=== PATIENT | female | born 1980 | race African-American/Black ===

== ENCOUNTER 2016-11-15 09:54 | Inpatient (IN) | payer MEDICAID ==
[~2016-11-15] VITALS: Ht 177.8 cm; Wt 62.6 kg
[~2016-11-15 09:54] MED LIST: CEPHALEXIN500 M1 ORAL; CIPROFLOXACIN750 MG ORAL; HYDROCODON-ACE1 EA15 ORAL; KEPPRA500 M4 ORAL; LEVETIRACETAM500 MG ORAL; NKM; SILVADENE20 GM TP; UNOBMED
[2016-11-15] MEDS ORDERED: LORazepam Inj 2mg/ml 1ml ONE (10:09)
[2016-11-15 10:10] VITALS: BP 112/63
[2016-11-15] MEDS ORDERED: LORazepam Inj 2mg/ml 1ml IV ONE (10:15)
[2016-11-15 11:20] LABS: MEAN CORPUSCULAR HEMOGLOBIN 32.3 PG (27.0-31.0); MEAN CORPUSCULAR HGB CONC 32.4 G/DL (32.0-36.0); MEAN CORPUSCULAR VOLUME 100 FL (80-99); PLATELET COUNT 341 K/UL (150-450); RED BLOOD COUNT 4.26 M/UL (4.20-5.40); RED CELL DISTRIBUTION WIDTH 13.8 % (11.6-14.8); WHITE BLOOD COUNT 20.1 K/UL (4.8-10.8)
[2016-11-15 11:25] LABS: ACETAMINOPHEN < 10 ug/mL (10-30); ALANINE AMINOTRANSFERASE 13 U/L (3-33); ALBUMIN/GLOBULIN RATIO 1.2 (1.0-2.7); ALCOHOL < 10 mg/dL; ANION GAP 25 (5-15); ASPARTATE AMINO TRANSFERASE 26 U/L (5-40); CALCIUM 9.6 mg/dL (8.6-10.2); CARBON DIOXIDE 16 mEQ/L (20-30); CHLORIDE 99 mEQ/L (98-107); CREATININE 0.8 mg/dL (0.5-0.9); GLOMERULAR FILTRATION RATE > 60 mL/min (>60); HEMOLYSIS 3; POTASSIUM 3.3 mEQ/L (3.4-4.9); SODIUM 140 mEQ/L (135-145); TROPONIN I < 0.30 ng/mL (<=0.30)
[2016-11-15 11:37] LABS: BAND NEUTROPHILS % (MANUAL) 1 % (0-8); BASOPHILS % (MANUAL) 0 % (0-2); EOSINOPHILS % (MANUAL) 0 % (0-3); LYMPHOCYTES % (MANUAL) 7 % (20-45); NEUTROPHILS % (MANUAL) 84 % (45-75); PLATELET ESTIMATE ADEQUATE; PLATELET MORPHOLOGY NORMAL; TOTAL CELLS COUNTED 100
[2016-11-15 12:19] LABS: APPEARANCE,URINE SLIGHTLY CLOUDY; KETONES,URINE 3+ (NEGATIVE); LEUKOCYTE ESTERASE ,URINE 1+ (NEGATIVE); NITRITE,URINE NEGATIVE (NEGATIVE); PH,URINE 5 (4.5-8.0); PROTEIN,URINE 1+ (NEGATIVE); UROBILINOGEN,URINE NORMAL MG/DL (0.0-1.0)
[2016-11-15 12:30] LABS: BACTERIA,URINE FEW /HPF; SQUAMOUS EPITHELIAL CELL,UR FEW /LPF (NONE/OCC); URIC ACID CRYSTALS,URINE MANY /LPF
--- NOTE | 2016-11-15 14:25 | Emergency Room Report ---
History of Present Illness General Chief Complaint: Seizure Source: Friend, EMS Present Illness HPI This patient has a history of seizure disorder. She is brought in by EMS. Her boyfriend called EMS because she had 9 seizures this morning. She does not take the Keppra she is prescribed. She does have a long history of seizure disorder. There are no other complaints. Allergies: Coded Allergies: No Known Allergies (Unverified , 08/05/13) Patient History Past Medical History: see triage record, seizures Social History: Reports: alcohol use, drug use Reviewed Nursing Documentation: PMH: Agreed, PSxH: Agreed Nursing Documentation-PMH Past Medical History: No History, Except For Hx Cancer: No Hx Gastrointestinal Problems: No Hx Neurological Problems: Yes Hx Seizures: Yes Review of Systems All Other Systems: negative except mentioned in HPI Physical Exam Vital Signs Date Time Temp Pulse Resp B/P Pulse Ox O2 Delivery O2 Flow Rate FiO2 11/15/16 09:49 99.0 70 16 130/90 99 Room Air Sp02 EP Interpretation: reviewed, normal General Appearance: no apparent distress, GCS 15, non-toxic, Postictal Head: normocephalic, atraumatic Eyes: bilateral eye PERRL, bilateral eye normal inspection ENT: hearing grossly normal, normal pharynx, no angioedema, normal voice Neck: full range of motion, supple/symm/no masses Respiratory: chest non-tender, lungs clear, normal breath sounds, speaking full sentences Cardiovascular #1: regular rate, rhythm, no edema Gastrointestinal: normal bowel sounds, non tender, soft, non-distended, no guarding, no rebound Rectal: deferred Musculoskeletal: back normal, normal range of motion, non-tender Neurologic: responsive, other - Sleepy but non-focal. Unable to fully cooperate with exam. Psychiatric: memory normal, mood/affect normal, no suicidal/homicidal ideation Skin: normal color, no rash, warm/dry, well hydrated Medical Decision Making Diagnostic Impression: Primary Impression: Uncontrolled seizures ER Course Patient presents with recurrent uncontrolled seizures. She is noncompliant with her medications. She says an elevated white blood cell count. I did repeat the white blood cell count and it is declining and this may be related to drug use and 9 seizures today. I feel that this patient should be admitted for further seizure control and further monitoring. She was admitted for further evaluation and treatment. Labs Test 11/15/16 10:08 11/15/16 11:54 White Blood Count 20.1 K/UL (4.8-10.8) Red Blood Count 4.26 M/UL (4.20-5.40) Hemoglobin 13.7 G/DL (12.0-16.0) Hematocrit 42.4 % (37.0-47.0) Mean Corpuscular Volume 100 FL (80-99) Mean Corpuscular Hemoglobin 32.3 PG (27.0-31.0) Mean Corpuscular Hemoglobin Concent 32.4 G/DL (32.0-36.0) Red Cell Distribution Width 13.8 % (11.6-14.8) Platelet Count 341 K/UL (150-450) Mean Platelet Volume 7.0 FL (6.5-10.1) Neutrophils (%) (Auto) % (45.0-75.0) Lymphocytes (%) (Auto) % (20.0-45.0) Monocytes (%) (Auto) % (1.0-10.0) Eosinophils (%) (Auto) % (0.0-3.0) Basophils (%) (Auto) % (0.0-2.0) Differential Total Cells Counted 100 Neutrophils % (Manual) 84 % (45-75) Lymphocytes % (Manual) 7 % (20-45) Monocytes % (Manual) 8 % (1-10) Eosinophils % (Manual) 0 % (0-3) Basophils % (Manual) 0 % (0-2) Band Neutrophils 1 % (0-8) Platelet Estimate Adequate Platelet Morphology Normal Red Blood Cell Morphology Normal Sodium Level 140 mEQ/L (135-145) Potassium Level 3.3 mEQ/L (3.4-4.9) Chloride Level 99 mEQ/L (98-107) Carbon Dioxide Level 16 mEQ/L (20-30) Anion Gap 25 (5-15) Blood Urea Nitrogen 6 mg/dL (7-23) Creatinine 0.8 mg/dL (0.5-0.9) Estimat Glomerular Filtration Rate > 60 mL/min (>60) Glucose Level 155 mg/dL (74-106) Calcium Level 9.6 mg/dL (8.6-10.2) Total Bilirubin 0.4 mg/dL (0.0-1.2) Aspartate Amino Transf (AST/SGOT) 26 U/L (5-40) Alanine Aminotransferase (ALT/SGPT) 13 U/L (3-33) Alkaline Phosphatase 87 U/L (35-104) Troponin I < 0.30 ng/mL (<=0.30) Total Protein 8.0 g/dL (6.6-8.7) Albumin 4.5 g/dL (3.5-5.2) Globulin 3.5 g/dL Albumin/Globulin Ratio 1.2 (1.0-2.7) Acetaminophen Level < 10 ug/mL (10-30) Serum Alcohol < 10 mg/dL Urine Color Pale yellow Urine Appearance Slightly cloudy Urine pH 5 (4.5-8.0) Urine Specific [place] 1.025 (1.005-1.035) Urine Protein 1+ (NEGATIVE) Urine Glucose (UA) Negative (NEGATIVE) Urine Ketones 3+ (NEGATIVE) Urine Occult Blood 1+ (NEGATIVE) Urine Nitrite Negative (NEGATIVE) Urine Bilirubin Negative (NEGATIVE) Urine Urobilinogen Normal MG/DL (0.0-1.0) Urine Leukocyte Esterase 1+ (NEGATIVE) Urine RBC 2-4 /HPF (0 - 2) Urine WBC 2-4 /HPF (0 - 2) Urine Squamous Epithelial Cells Few /LPF (NONE/OCC) Urine Uric Acid Crystals Many /LPF (NONE) Urine Bacteria Few /HPF (NONE) Urine HCG, Qualitative Negative Urine Opiates Screen Negative (NEGATIVE) Urine Barbiturates Screen Negative (NEGATIVE) Phencyclidine (PCP) Screen Negative (NEGATIVE) Urine Amphetamines Screen Negative (NEGATIVE) Urine Benzodiazepines Screen Negative (NEGATIVE) Urine Cocaine Screen Negative (NEGATIVE) Urine Marijuana (THC) Screen Positive (NEGATIVE) EKG Diagnostic Results Rate: tachycardiac Rhythm: other ST Segments: no acute changes Rhythm Strip Diag. Results EP Interpretation: yes Rate: 100's Rhythm: no PVC's, no ectopy Other Impression S.tachycardia Last Vital Signs Date Time Temp Pulse Resp B/P Pulse Ox O2 Delivery O2 Flow Rate FiO2 11/15/16 10:11 101 26 Room Air 11/15/16 10:10 99.0 112/63 99 Disposition: ADMITTED INPATIENT Condition: Serious Referrals: [facility],REFERRING (PCP) IMTIAZ LOPEZ D.O. Nov 15, 2016 14:25
[2016-11-15 15:06] VITALS: BP 118/64
[2016-11-15 15:07] LABS: MEAN CORPUSCULAR HEMOGLOBIN 34.4 PG (27.0-31.0); MEAN CORPUSCULAR VOLUME 98 FL (80-99); MEAN PLATELET VOLUME 7.1 FL (6.5-10.1); PLATELET COUNT 199 K/UL (150-450); RED BLOOD COUNT 3.62 M/UL (4.20-5.40); RED CELL DISTRIBUTION WIDTH 13.6 % (11.6-14.8); WHITE BLOOD COUNT 17.2 K/UL (4.8-10.8)
[2016-11-15] MEDS ORDERED: UNOBMED (15:22)
[2016-11-15 15:31] LABS: BAND NEUTROPHILS % (MANUAL) 0 % (0-8); BASOPHILS % (MANUAL) 0 % (0-2); EOSINOPHILS % (MANUAL) 0 % (0-3); LYMPHOCYTES % (MANUAL) 8 % (20-45); NEUTROPHILS % (MANUAL) 89 % (45-75); PLATELET ESTIMATE ADEQUATE; PLATELET MORPHOLOGY NORMAL; TOTAL CELLS COUNTED 100
[2016-11-15 19:10] VITALS: BP 102/62
[2016-11-15 21:00] VITALS: BP 122/84
[2016-11-15 21:05] VITALS: BP 102/62
[2016-11-15] MEDS ORDERED: LORazepam Inj 2mg/ml 1ml IV PRN (22:15)
[2016-11-16] VITALS: BP 110/69
[2016-11-16 04:00] VITALS: BP 113/78
[2016-11-16 08:00] VITALS: BP 116/64
[2016-11-16 08:31] LABS: BASOPHILS % (AUTO) 1.7 % (0.0-2.0); EOSINOPHILS % (AUTO) 1.2 % (0.0-3.0); LYMPHOCYTES % (AUTO) 40.7 % (20.0-45.0); MEAN CORPUSCULAR HEMOGLOBIN 32.9 PG (27.0-31.0); MEAN CORPUSCULAR HGB CONC 33.5 G/DL (32.0-36.0); MEAN CORPUSCULAR VOLUME 98 FL (80-99); MEAN PLATELET VOLUME 6.9 FL (6.5-10.1); MONOCYTES % (AUTO) 10.3 % (1.0-10.0); PLATELET COUNT 260 K/UL (150-450); RED BLOOD COUNT 3.81 M/UL (4.20-5.40); RED CELL DISTRIBUTION WIDTH 13.1 % (11.6-14.8); WHITE BLOOD COUNT 9.6 K/UL (4.8-10.8)
[2016-11-16 08:43] LABS: ANION GAP 21 (5-15); CALCIUM 8.8 mg/dL (8.6-10.2); CARBON DIOXIDE 19 mEQ/L (20-30); CHLORIDE 98 mEQ/L (98-107); CREATININE 0.6 mg/dL (0.5-0.9); GLOMERULAR FILTRATION RATE > 60 mL/min (>60); HEMOLYSIS 29; POTASSIUM 3.1 mEQ/L (3.4-4.9); SODIUM 138 mEQ/L (135-145)
[2016-11-16 12:00] VITALS: BP 112/66
[2016-11-16 16:00] VITALS: BP 107/65
[2016-11-16] MEDS: Acetaminophen 500mg (ES) tab ORAL PRN ×2 (17:23→23:54)
[2016-11-16 20:13] VITALS: BP 96/73
[2016-11-17 00:09] VITALS: BP 118/86
[2016-11-17 04:15] VITALS: BP 108/81
[2016-11-17 08:30] VITALS: BP 119/77
--- NOTE | 2016-11-17 08:44 | Neurology Progress Note ---
Objective Physical Exam Last Vital Signs Date Time Temp Pulse Resp B/P Pulse Ox O2 Delivery O2 Flow Rate FiO2 11/17/16 04:15 97.0 80 20 108/81 97 Room Air Impression/Recommendations Problems: (1) Uncontrolled seizures (2) Noncompliance with medication regimen Status: unchanged Recommendations #[id number] ANDREW BARLOW Nov 17, 2016 08:44
[2016-11-17] MEDS: Acetaminophen 500mg (ES) tab ORAL PRN ×2 (09:03→13:07)
--- NOTE | 2016-11-17 10:15 | Consultation ---
DATE OF CONSULTATION: 11/16/2016 NEUROLOGICAL CONSULTATION REQUESTING PHYSICIAN: Ryan Camarena M.D. HISTORY OF PRESENT ILLNESS: This is a 35-year-old female, seen in neurological consultation to evaluate exacerbation of chronic seizure disorder. The patient is a poor historian, but according to medical records, the patient had been hospitalized initially to this facility in 2013 after having a few months of recurrent generalized clonic-tonic seizures. The patient was able to tell me that she had at least 3 seizures this year. She has no recollection what happened to her yesterday prior to admission. According to her boyfriend who was with her at home, she had at least 6 seizures without regaining consciousness, after following which paramedics were called to the scene, she was brought to this facility. Her vital signs were stable. Blood pressure 130/90 and temperature 99.0 degrees. Laboratory studies at included CBC with WBC 20.1, which subsided down to 9.6. Urinalysis, 2+ ketones. Toxicology panel positive for marijuana. Chemistry panel with potassium 3.3. Anion gap of 25. Blood sugar 155. Repeat study revealed normal blood glucose 75 and potassium down to 3.1. The patient is unable to recall exactly what doses of medication she is on except she is on Keppra in her bottle indicate it is 1000 milligram to be taken twice a day. She is also on Dilantin, but the dose is not clear. PAST MEDICAL HISTORY: She denies any major medical problems in the past. MEDICATIONS: The patient indicated that she ran out of medications. MEDICATIONS: The patient indicated that she ran out of medications. ALLERGIES: None reported. SOCIAL HISTORY: The patient lives with her boyfriend. 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 She admits having alcohol abuse in the past, but now she is drinking once a week without being drunk. Smoker, marijuana. REVIEW OF SYSTEMS: Currently feels well. She has no headache and no dizziness. No chest pain or palpitations. No respiratory problems. Denies abdominal pain or discomfort. She describes her seizures sudden loss of consciousness with fall. At times, urinary incontinence, tongue biting with postictal confusion state. PHYSICAL EXAMINATION: GENERAL: A well-developed, well-nourished female, not in acute distress, lying comfortably in bed. VITAL SIGNS: Vital signs now are stable. Blood pressure 128/70 and respirations 14. HEENT: Head, normocephalic. No evidence of injuries. Eyes, ears, and throat are clear. NECK: Supple. No meningeal signs. MUSCULOSKELETAL: Unremarkable. There is no deformities. Peripheral pulses 1+ symmetric. MENTAL STATUS: The patient is alert and oriented x3. Her speech is fluent with no evidence of aphasia. She is very poor historian, responding slowly with some delay. Follow commands accurately. CRANIAL NERVE II: Pupils both responding to light and accommodation. Extraocular movement intact. No nystagmus. CRANIAL NERVE V: Normal corneal responses. CRANIAL NERVE VII: No facial asymmetry. CRANIAL NERVE VIII: Normal hearing. CRANIAL NERVES IX THROUGH XII: Tongue is in midline. Symmetric palate elevation. MOTOR EXAMINATION: Normal muscle tone. Strength 5/5 in all extremities. No involuntary movement. Deep tendon reflexes 1+ symmetric with downgoing toes on both sides. SENSORY EXAMINATION: Normal to pinprick and light touch. Gait is stable. IMPRESSION: This is a 35-year-old female with a chronic seizure disorder, now presenting with exacerbation due to noncompliance. RECOMMENDATION: 1. The patient to restart on Keppra 1000 mg b.i.d. 2. Restart on Dilantin 300 mg daily. 3. I discussed with the patient maintaining proper dose of medication due to high risk of significant injuries during seizure episode. 4. The patient is and she is strongly advised to reduce alcohol consumption. The patient to be seen by her primary physician in following month to recheck blood levels and adjust Dilantin appropriately. Thank you for allowing me to see this interesting patient in neurological consultation. Jose Lopez M.D. DR: ANABELLA JOB#: [id number] CC:
[2016-11-17 12:30] VITALS: BP 129/79
[2016-11-17] MEDS ORDERED: Norco 10mg/325mg tab ORAL PRN (15:00)
[2016-11-17 15:52] VITALS: BP 125/90
[2016-11-17] MEDS ORDERED: Phenytoin 100mg cap ORAL SCH (21:00)
[2016-11-17] MEDS ORDERED: DILANTIN100 MG ORAL (21:05)
[2016-11-17] MEDS ORDERED: KEPPRA1000 MG ORAL (21:05)
--- NOTE | 2016-11-18 11:20 | History and Physical ---
History of Present Illness General Date patient seen: Nov 16, 2016 Reason for Hospitalization: Seizure Present Illness HPI 35 y/o female with history of seizure disorder presented to the ED with seizures .Patient's boyfriend who witnessed the seizures reports that she had 6 seizures with ALOC. Patient has no recollection of the events prior to ED arrival. She was noted to have leukocytosis without fever. SHe is unable to give much further history. She was admitted for further care. Allergies: Coded Allergies: No Known Allergies (Unverified , 08/05/13) Medication History Scheduled Levetiracetam (Keppra), 1,000 MG ORAL EVERY 12 HOURS, (Reported) No Known Medications* (NKM - No Known Medications*), 0 ., (Reported) Phenytoin Sodium Extended* (Dilantin*), 300 MG ORAL BEDTIME, (Reported) Discontinued Medications Cephalexin* (Cephalexin*), 500 MG ORAL EVERY 6 HOURS, (Reported) Discontinued Reason: Therapy completed Ciprofloxacin Hcl (Ciprofloxacin Hcl*), 500 MG ORAL BID, (Reported) Discontinued Reason: Therapy completed Patient History History Provided By: Patient, Significant Other Healthcare decision maker Resuscitation status Full Code Advanced Directive on File No Past Medical/Surgical History Past Medical/Surgical History: (1) Seizure disorder Review of Systems All Other Systems: negative except mentioned in HPI Physical Exam General Appearance: WD/WN, no apparent distress HEENT: normocephalic, atraumatic Neck: supple Respiratory/Chest: lungs clear Cardiovascular/Chest: normal rate, regular rhythm Abdomen: non tender, soft Extremities: no edema Neurologic: alert, oriented x 3 Last 24 Hour Vital Signs Date Time Temp Pulse Resp B/P Pulse Ox O2 Delivery O2 Flow Rate FiO2 11/17/16 16:48 97.2 11/17/16 15:52 97.2 77 20 125/90 98 Room Air 11/17/16 15:45 88 11/17/16 14:06 96.9 11/17/16 12:30 96.9 76 20 129/79 98 Room Air 11/17/16 12:03 82 Intake and Output 11/17/16 11/18/16 19:00 07:00 Intake Total 300 ml Balance 300 ml Intake Oral 300 ml # Voids 3 Height (Feet): 5 Height (Inches): 10.00 Weight (Pounds): 138 Assessment/Plan Problem List: (1) Status epilepticus (2) Alcohol abuse ICD Codes: F10.10 - Alcohol abuse, uncomplicated SNOMED: 67368971, 94228805 (3) Seizure disorder ICD Codes: G40.909 - Epilepsy, unspecified, not intractable, without status epilepticus SNOMED: 551257328, [id number] Assessment/Plan Neuro consultation. Resume home meds. Ativan prn. Seizure precautions. ZIGGY MENDEZ Nov 18, 2016 11:20
--- NOTE | 2016-11-18 11:26 | Discharge Summary ---
Discharge Summary Hospital Course Date of Admission Nov 15, 2016 at 15:48 Date of Discharge Nov 17, 2016 at 21:30 Admitting Diagnosis uncontrolled seizures EHSAN Tairq is a 35 year old female who was admitted on Nov 15, 2016 at 15: 48 for Uncontrolled Seizures.Patient's boyfriend who witnessed the seizures reported that she had 6 seizures with ALOC. Patient had no recollection of the events prior to ED arrival. She did state that she has been noncompliant with her seizure medications. Consultations Neuro- Dr. Villanueva Hospital Course Patient was seen by Neuro. Anti-seizure medications were started per Neuro. No further seizures were reported during the admission. However, before further evaluation and management, patient signed out AMA> Discharge Discharge Disposition Patient was discharged to Home (01) Discharge Diagnoses: (1) Seizure disorder (2) Alcohol abuse (3) Status epilepticus ZIGGY MENDEZ Nov 18, 2016 11:26
--- NOTE | 2016-11-18 20:22 | Cardiology Report ---
APPROVED REPORT EKG Measurement Heart [id number] Sinus tachycardia Septal infarct, age undetermined Abnormal ECG
== END 2016-11-17 21:30 | disposition home or self-care (01) | DRG 53 ==
LOC: EDBD 09:54 → EMR 10:23 → 2E 15:48 → EDBEDREQ 16:07
DX: G40.803 Other epilepsy, intractable, with status epilepticus (principal); F10.10 Alcohol abuse, uncomplicated; Z91.14 Patient's other noncompliance with medication regimen
CPT/HCPCS: 36415; 80048; 80053; 80299; 80300; 80329; 81003; 81025; 82962; 84484; 85007; 85025; 93005

== ENCOUNTER 2016-11-29 10:18 | Emergency (ER) | payer MEDICAID ==
[~2016-11-29] VITALS: Ht 157.5 cm; Wt 59.0 kg
[~2016-11-29 10:18] MED LIST changes: +DILANTIN100 MG ORAL; +KEPPRA1000 MG ORAL
[2016-11-29 10:52] LABS: BASOPHILS % (AUTO) 0.8 % (0.0-2.0); EOSINOPHILS % (AUTO) 1.5 % (0.0-3.0); LYMPHOCYTES % (AUTO) 30.7 % (20.0-45.0); MEAN CORPUSCULAR HEMOGLOBIN 32.2 PG (27.0-31.0); MEAN CORPUSCULAR HGB CONC 32.5 G/DL (32.0-36.0); MEAN CORPUSCULAR VOLUME 99 FL (80-99); MEAN PLATELET VOLUME 6.3 FL (6.5-10.1); MONOCYTES % (AUTO) 4.7 % (1.0-10.0); NEUTROPHILS % (AUTO) 62.3 % (45.0-75.0); PLATELET COUNT 306 K/UL (150-450); RED BLOOD COUNT 4.24 M/UL (4.20-5.40); RED CELL DISTRIBUTION WIDTH 13.8 % (11.6-14.8); WHITE BLOOD COUNT 14.4 K/UL (4.8-10.8)
[2016-11-29 10:53] VITALS: BP 116/93
--- NOTE | 2016-11-29 11:04 | Emergency Room Report ---
History of Present Illness General Chief Complaint: Seizure Source: Patient Present Illness HPI 35-year-old female presents to ED for evaluation. Per EMS patient was found on the street bystanders called 911. Patient admits to drinking today and states she cannot walk straight. Patient denies any drug use. Patient notes history of seizures but does not know what medications he takes. Is unable to clarify whether she is compliant with her medications. Patient denies any pain right now. Denies any fevers or chills. Denies nausea or vomiting. No other aggravating or relieving factors. Denies any other associated symptoms Allergies: Coded Allergies: No Known Allergies (Unverified , 08/05/13) Patient History Past Medical History: seizures Past Surgical History: none Pertinent Family History: none Social History: Reports: alcohol use, Denies: drug use, smoking Now: No Immunizations: UTD Reviewed Nursing Documentation: PMH: Agreed, PSxH: Agreed Nursing Documentation-PMH Past Medical History: No History, Except For Hx Cardiac Problems: No Hx Cancer: No Hx Gastrointestinal Problems: No Hx Neurological Problems: Yes Hx Seizures: Yes Review of Systems All Other Systems: negative except mentioned in HPI Physical Exam Vital Signs Date Time Temp Pulse Resp B/P Pulse Ox O2 Delivery O2 Flow Rate FiO2 11/29/16 10:16 98.1 103 16 116/93 98 Room Air Sp02 EP Interpretation: reviewed, normal General Appearance: GCS 15, non-toxic, other - intoxicated Head: normocephalic, atraumatic Eyes: bilateral eye PERRL, bilateral eye normal inspection ENT: hearing grossly normal, normal pharynx, no angioedema, normal voice Neck: full range of motion, supple/symm/no masses Respiratory: chest non-tender, lungs clear, normal breath sounds, speaking full sentences Cardiovascular #1: regular rate, rhythm, no edema Cardiovascular #2: 2+ carotid (R), 2+ carotid (L), 2+ radial (R), 2+ radial (L) , 2+ dorsalis pedis (R), 2+ dorsalis pedis (L) Gastrointestinal: normal bowel sounds, non tender, soft, non-distended, no guarding, no rebound Rectal: deferred Genitourinary: normal inspection, no CVA tenderness Musculoskeletal: back normal, gait/station normal, normal range of motion, non- tender Neurologic: alert, responsive, motor strength/tone normal, sensory intact, speech normal, other - intoxicated Psychiatric: judgement/insight normal, memory normal, mood/affect normal, no suicidal/homicidal ideation, other - intoxicated Reflexes: 3+ bicep (R), 3+ bicep (L), 3+ tricep (R), 3+ tricep (L), 3+ knee (R) , 3+ knee (L) Skin: normal color, no rash, warm/dry, well hydrated Lymphatic: no adenopathy Medical Decision Making Diagnostic Impression: Primary Impression: Alcohol abuse Additional Impression: Seizure disorder ER Course Hospital Course 35-year-old F presents to ED with altered mental status. Found on the street intoxicated Differential diagnoses include: Psychosis, EtOH, drug abuse Clinical course patient placed on stretcher. On front desk monitor. After initial history and physical ordered labs, IV fluids, Labs reviewed-electrolytes okay, no leukocytosis, hemoglobin/hematocrit stable, ETOH > 400 Patient has an extensive seizure history but is known to be noncompliant with her medications. Given loading dose of Dilantin and Keppra Patient became agitated and was removing her IV and monitoring devices. Patient fell to the ground but did not hit her head. Patient was sedated with Ativan Patient allowed to sleep. Patient woke up clinically sober. ambulating without difficulty. No suicidal or homicidal ideation. Patient be safely discharged i. I feel this is a highly complex case requiring extensive working including EKG/Rhythm strip, Xray/CT/US, Blood/urine lab work, repeat exams while in ED, and administration of strong opiates/narcotics for pain control, admission to hospital or close patient follow up. Diagnosis -alcohol abuse Stable and discharged to home. Followup with PMD. Return to ED if symptoms recur or worsen Labs Test 11/29/16 10:34 White Blood Count 14.4 K/UL (4.8-10.8) Red Blood Count 4.24 M/UL (4.20-5.40) Hemoglobin 13.6 G/DL (12.0-16.0) Hematocrit 41.9 % (37.0-47.0) Mean Corpuscular Volume 99 FL (80-99) Mean Corpuscular Hemoglobin 32.2 PG (27.0-31.0) Mean Corpuscular Hemoglobin Concent 32.5 G/DL (32.0-36.0) Red Cell Distribution Width 13.8 % (11.6-14.8) Platelet Count 306 K/UL (150-450) Mean Platelet Volume 6.3 FL (6.5-10.1) Neutrophils (%) (Auto) 62.3 % (45.0-75.0) Lymphocytes (%) (Auto) 30.7 % (20.0-45.0) Monocytes (%) (Auto) 4.7 % (1.0-10.0) Eosinophils (%) (Auto) 1.5 % (0.0-3.0) Basophils (%) (Auto) 0.8 % (0.0-2.0) Urine HCG, Qualitative Negative Sodium Level 142 mEQ/L (135-145) Potassium Level 3.6 mEQ/L (3.4-4.9) Chloride Level 101 mEQ/L (98-107) Carbon Dioxide Level 16 mEQ/L (20-30) Anion Gap 25 (5-15) Blood Urea Nitrogen 7 mg/dL (7-23) Creatinine 0.6 mg/dL (0.5-0.9) Estimat Glomerular Filtration Rate > 60 mL/min (>60) Glucose Level 79 mg/dL (74-106) Calcium Level 8.2 mg/dL (8.6-10.2) Total Bilirubin < 0.2 mg/dL (0.0-1.2) Aspartate Amino Transf (AST/SGOT) 27 U/L (5-40) Alanine Aminotransferase (ALT/SGPT) 16 U/L (3-33) Alkaline Phosphatase 96 U/L (35-104) Total Protein 7.7 g/dL (6.6-8.7) Albumin 3.9 g/dL (3.5-5.2) Globulin 3.8 g/dL Albumin/Globulin Ratio 1.0 (1.0-2.7) Salicylates Level < 1 mg/dL (10-30) Urine Opiates Screen Negative (NEGATIVE) Acetaminophen Level < 10 ug/mL (10-30) Urine Barbiturates Screen Negative (NEGATIVE) Phenytoin (Dilantin) Level < 0.8 ug/mL (10-20) Phencyclidine (PCP) Screen Negative (NEGATIVE) Urine Amphetamines Screen Negative (NEGATIVE) Urine Benzodiazepines Screen Negative (NEGATIVE) Urine Cocaine Screen Negative (NEGATIVE) Urine Marijuana (THC) Screen Positive (NEGATIVE) Serum Alcohol 403 mg/dL Last Vital Signs Date Time Temp Pulse Resp B/P Pulse Ox O2 Delivery O2 Flow Rate FiO2 11/29/16 10:53 103 16 Room Air 11/29/16 10:53 98.1 116/93 98 Disposition: HOME, SELF-CARE Condition: Stable Scripts Levetiracetam (Keppra) 250 Mg Tablet 500 MG ORAL EVERY 12 HOURS, #60 TAB 0 Refills Prov: Santy Biggs M.D. 11/29/16 Phenytoin Sodium Extended* (DILANTIN*) 100 Mg Capsule 300 MG ORAL BEDTIME, #90 CAP Prov: Santy Biggs M.D. 11/29/16 Referrals: [facility]ERR[facility] (PCP) DOM CRANDALL M.D. Nov 29, 2016 11:04
[2016-11-29 11:07] LABS: ACETAMINOPHEN < 10 ug/mL (10-30); ALANINE AMINOTRANSFERASE 16 U/L (3-33); ALCOHOL 403 mg/dL; ANION GAP 25 (5-15); ASPARTATE AMINO TRANSFERASE 27 U/L (5-40); CALCIUM 8.2 mg/dL (8.6-10.2); CARBON DIOXIDE 16 mEQ/L (20-30); CHLORIDE 101 mEQ/L (98-107); CREATININE 0.6 mg/dL (0.5-0.9); GLOMERULAR FILTRATION RATE > 60 mL/min (>60); HEMOLYSIS 5; POTASSIUM 3.6 mEQ/L (3.4-4.9); SODIUM 142 mEQ/L (135-145); TOTAL PROTEIN 7.7 g/dL (6.6-8.7)
[2016-11-29] MEDS ORDERED: Phenytoin 1,000 MG in NS 275 ML IV ONE (11:15)
[2016-11-29] MEDS ORDERED: Phenytoin 250mg/5ml vial ONE (11:15)
[2016-11-29 11:42] VITALS: BP 94/65
[2016-11-29] MEDS ORDERED: LORazepam Inj 2mg/ml 1ml IV ONE (13:00)
[2016-11-29 15:45] VITALS: BP 93/61
[2016-11-29] MEDS ORDERED: DILANTIN100 MG ORAL (18:34)
[2016-11-29 18:35] VITALS: BP 93/61
[2016-11-29] MEDS ORDERED: KEPPRA500 MG ORAL (18:37)
== END 2016-11-29 18:35 | disposition home or self-care (01) ==
LOC: EDBD 10:18 → EMR 10:32
DX: F10.10 Alcohol abuse, uncomplicated (principal); G40.909 Epilepsy, unspecified, not intractable, without status epilepticus
CPT/HCPCS: 36415; 80053; 80185; 80300; 80329; 81025; 85025; 96374; 96375; 99284; J1165; J7050

== ENCOUNTER 2017-01-04 19:48 | Emergency (ER) | payer MEDICAID ==
[~2017-01-04] VITALS: Ht 157.5 cm; Wt 59.0 kg
[2017-01-04 19:48] VITALS: BP 132/80
[~2017-01-04 19:48] MED LIST changes: +KEPPRA500 MG ORAL; +LORazepam Inj 2mg/ml 1ml IV ONE; +fentaNYL 100 mcg/2 mL IV ONE
--- NOTE | 2017-01-04 19:51 | Emergency Room Report ---
History of Present Illness General Chief Complaint: Seizure Source: Patient, EMS Present Illness HPI The patient presents with 2 problems. One is that she had a seizure. During the seizure she also dislocated her right shoulder. This has happened in the past. She says she might have missed a few doses of her Dilantin and Keppra. She denies any alcohol or other drugs. The pain in her shoulder is severe. It radiates down her arm. She denies any numbness. She states that they usually have to make her sleepy in order to get the shoulder back in place. She last ate several hours ago. She denies being this time. She denies fevers or chills, cough or shortness of breath, chest pain. She has been seen here in the past for status epilepticus. Allergies: Coded Allergies: No Known Allergies (Unverified , 08/05/13) Patient History Past Medical History: see triage record Social History: Reports: alcohol use, drug use, smoking Social History Narrative with sig other Last Menstrual Period: last week Reviewed Nursing Documentation: PMH: Agreed, PSxH: Agreed Nursing Documentation-PMH Hx Seizures: Yes Review of Systems All Other Systems: negative except mentioned in HPI Physical Exam Vital Signs Date Time Temp Pulse Resp B/P Pulse Ox O2 Delivery O2 Flow Rate FiO2 01/04/17 19:43 98.2 84 16 132/80 100 Room Air Sp02 EP Interpretation: reviewed, normal General Appearance: well appearing, no apparent distress, GCS 15 Head: normocephalic Eyes: bilateral eye PERRL, bilateral eye normal inspection ENT: moist mucus membranes - no lingual macerations Neck: supple Respiratory: chest non-tender, lungs clear, normal breath sounds Cardiovascular #1: regular rate, rhythm Cardiovascular #2: 2+ radial (R) Gastrointestinal: normal inspection, normal bowel sounds, non tender, no mass, non-distended Musculoskeletal: back normal, gait/station normal, decreased range of motion - R shoulder with dimpling Neurologic: alert, oriented x3, motor strength/tone normal, DTRs symmetric, sensory intact, cerebellar normal, normal gait, speech normal Psychiatric: mood/affect normal Skin: normal inspection, warm/dry Procedures Joint Reduction Joint Reduction : Consent: Written Joint Reduction Site: shoulder (R) Procedural Sedation: Yes - fentanyl and versed Reduction Attempts: Other - initially with flexion and internal adduction of elbow, unsuccessful. Contertraction successful Pre-Procedure NV Exam: Yes Post-Procedure NV Exam: Yes Post Joint Reduction Film: joint reduced Patient Tolerated: Well Complications: None Procedural Sedation Consent: Written Pre-Sedation Assessment: Eval. Immed. Prior to Sed, Pre-proc Edu. done, Plan for Sedation Discuss Airway Assessment (Malampati): I Heart: normal Lungs: normal Abdomen: normal Extremities: abnormal Procedures/Plans: Closed Reduction Plan for Moderate Sedation: Other - fentanyl and versed ASA Score: II Start Time: 21:38 End Time: 21:46 Communication: No Apparent Limitation Mental Status: Awake Respiration: Unlabored Skin Condition: WNL Abdomen: WNL Nausea: NO Vomiting: NO Medical Decision Making Diagnostic Impression: Primary Impression: Seizure Additional Impressions: Shoulder dislocation Qualified Codes: S43.004A - Unspecified dislocation of right shoulder joint, initial encounter Subtherapeutic phenytoin level ER Course Patient presents with seizure and possible regular dislocation. It needs to be evaluated for the seizures and a Dilantin level be checked. In addition electrolytes and CBC will be checked also. She'll be given Ativan. In addition to that, she was given fentanyl for pain in her shoulder. Right shoulder x-rays will be obtained. She will need to have the present in addition to the fentanyl to reduce the shoulder. Patient refusing x-rays without pain medicine. Patient refusing to give urine. Patient with fx dislocation R shoulder. Reduced shoulder. Fully awake. Immobilizer good position and neurovasc normal. Patient stable for outpatient observation and treatment. Laboratory Tests Test 01/04/17 19:50 01/04/17 20:30 White Blood Count 14.2 K/UL (4.8-10.8) H Red Blood Count 4.39 M/UL (4.20-5.40) Hemoglobin 14.9 G/DL (12.0-16.0) Hematocrit 44.1 % (37.0-47.0) Mean Corpuscular Volume 100 FL (80-99) H Mean Corpuscular Hemoglobin 33.9 PG (27.0-31.0) H Mean Corpuscular Hemoglobin Concent 33.8 G/DL (32.0-36.0) Red Cell Distribution Width 13.5 % (11.6-14.8) Platelet Count 290 K/UL (150-450) Mean Platelet Volume 6.5 FL (6.5-10.1) Neutrophils (%) (Auto) 54.1 % (45.0-75.0) Lymphocytes (%) (Auto) 35.8 % (20.0-45.0) Monocytes (%) (Auto) 5.0 % (1.0-10.0) Eosinophils (%) (Auto) 2.9 % (0.0-3.0) Basophils (%) (Auto) 2.2 % (0.0-2.0) H Sodium Level 133 mEQ/L (135-145) L Potassium Level 4.2 mEQ/L (3.4-4.9) Chloride Level 96 mEQ/L (98-107) L Carbon Dioxide Level 17 mEQ/L (20-30) L Anion Gap 20 (5-15) H Blood Urea Nitrogen 4 mg/dL (7-23) L Creatinine 0.8 mg/dL (0.5-0.9) Estimate Glomerular Filtration Rate > 60 mL/min (>60) Glucose Level 134 mg/dL (74-106) H Calcium Level 9.6 mg/dL (8.6-10.2) Total Bilirubin 0.6 mg/dL (0.0-1.2) Aspartate Amino Transferase (AST) 29 U/L (5-40) Alanine Aminotransferase (ALT) 11 U/L (3-33) Alkaline Phosphatase 107 U/L (35-104) H Total Protein 8.4 g/dL (6.6-8.7) Albumin 4.7 g/dL (3.5-5.2) Globulin 3.7 g/dL Albumin/Globulin Ratio 1.2 (1.0-2.7) Phenytoin (Dilantin) Level < 0.8 ug/mL (10-20) L Urine HCG, Qualitative Negative Urine Opiates Screen Negative (NEGATIVE) Urine Barbiturates Screen Negative (NEGATIVE) Phencyclidine (PCP) Screen Negative (NEGATIVE) Urine Amphetamines Screen Negative (NEGATIVE) Urine Benzodiazepines Screen Negative (NEGATIVE) Urine Cocaine Screen Negative (NEGATIVE) Urine Marijuana (THC) Screen Positive (NEGATIVE) H Rhythm Strip Diag. Results EP Interpretation: yes Rhythm: NSR, no PVC's, no ectopy Other X-Ray Diagnostic Results Other X-Ray Diagnostic Results #1: X-Ray ordered: R shoulder # of Views/Limited Vs Complete: 3 View Indication: Pain EP Interpretation: Yes Interpretation: no soft tissue swelling, other - ant dislocation and fx Impression: Other Interpreting ER Provider: electronic signature Santy Biggs MD Other X-Ray Diagnostic Results #2: X-Ray ordered: R shoulder # of Views/Limited Vs Complete: 1 View Indication: Other EP Interpretation: Yes Interpretation: no dislocation, no soft tissue swelling, other - possl old fx Impression: Other Interpreting ER Provider: Electronic signature Santy Biggs MD Last Vital Signs Date Time Temp Pulse Resp B/P Pulse Ox O2 Delivery O2 Flow Rate FiO2 01/04/17 22:17 97.8 01/04/17 21:50 80 18 156/76 100 Room Air Status: improved Disposition: HOME, SELF-CARE Condition: Improved Scripts Ibuprofen* (MOTRIN*) 600 Mg Tablet 600 MG ORAL Q6H Y for For Pain, #16 TAB Prov: Santy Biggs M.D. 01/04/17 Hydrocodone Bit/Acetaminophen 5-325* ([place] 5-325*) 1 Each Tablet 1 TAB ORAL Q6H Y for For Pain, #8 TAB 0 Refills Prov: Santy Biggs M.D. 01/04/17 Santy Biggs M.D. Jan 04, 2017 19:51
[2017-01-04 20:31] LABS: BASOPHILS % (AUTO) 2.2 % (0.0-2.0); EOSINOPHILS % (AUTO) 2.9 % (0.0-3.0); LYMPHOCYTES % (AUTO) 35.8 % (20.0-45.0); MEAN CORPUSCULAR HEMOGLOBIN 33.9 PG (27.0-31.0); MEAN CORPUSCULAR HGB CONC 33.8 G/DL (32.0-36.0); MEAN CORPUSCULAR VOLUME 100 FL (80-99); MEAN PLATELET VOLUME 6.5 FL (6.5-10.1); NEUTROPHILS % (AUTO) 54.1 % (45.0-75.0); PLATELET COUNT 290 K/UL (150-450); RED BLOOD COUNT 4.39 M/UL (4.20-5.40); RED CELL DISTRIBUTION WIDTH 13.5 % (11.6-14.8); WHITE BLOOD COUNT 14.2 K/UL (4.8-10.8)
[2017-01-04 20:45] LABS: ALANINE AMINOTRANSFERASE 11 U/L (3-33); ALBUMIN/GLOBULIN RATIO 1.2 (1.0-2.7); ANION GAP 20 (5-15); ASPARTATE AMINO TRANSFERASE 29 U/L (5-40); CALCIUM 9.6 mg/dL (8.6-10.2); CARBON DIOXIDE 17 mEQ/L (20-30); CHLORIDE 96 mEQ/L (98-107); CREATININE 0.8 mg/dL (0.5-0.9); GLOMERULAR FILTRATION RATE > 60 mL/min (>60); HEMOLYSIS 114; POTASSIUM 4.2 mEQ/L (3.4-4.9); SODIUM 133 mEQ/L (135-145); TOTAL PROTEIN 8.4 g/dL (6.6-8.7)
[2017-01-04] MEDS ORDERED: Phenytoin 500 MG in NS 110 ML IVPB STA (20:52)
[2017-01-04] MEDS ORDERED: Lidocaine 2% 100mg/5ml Carp IV ONE (21:30)
[2017-01-04 21:32] VITALS: BP 161/103
[2017-01-04] MEDS ORDERED: Midazolam 2mg/2ml Inj IVP ONE (21:45)
[2017-01-04 21:50] VITALS: BP 156/76
[2017-01-04] MEDS ORDERED: IBUPROFEN600 MG ORAL (22:37)
[2017-01-04] MEDS ORDERED: NORCO 5-325 TA1 EACH ORAL (22:37)
[2017-01-04] MEDS ORDERED: Phenytoin 100mg cap ORAL ONE (22:45)
[2017-01-05 00:19] VITALS: BP 149/66
[2017-01-05 02:23] VITALS: BP 141/70
[2017-01-05 02:53] VITALS: BP 141/70
--- NOTE | 2017-01-05 10:24 | Diagnostic Imaging Report ---
Indication: Pain Comparison: One hour earlier Findings: 2 views of the right shoulder were obtained. There is a Hill-Sachs deformity/fracture of the humeral head. Glenohumeral alignment is currently normal after reduction. Impression: Prominent Hill-Sachs deformity/fracture
--- NOTE | 2017-01-05 10:25 | Diagnostic Imaging Report ---
Indication: Pain Findings: 3 views of the right shoulder were obtained. There is an acute fracture of the greater tuberosity and prominent Hill-Sachs deformity. Fracture is displaced. Anterior dislocation of the humeral head demonstrated. Impression: Acute fracture dislocation
== END 2017-01-05 02:53 | disposition home or self-care (01) ==
LOC: EDBD 19:48 → EMR 19:55
DX: G40.909 Epilepsy, unspecified, not intractable, without status epilepticus (principal); S43.004A Unspecified dislocation of right shoulder joint, initial encounter; F17.200 Nicotine dependence, unspecified, uncomplicated; S42.251A Displaced fracture of greater tuberosity of right humerus, initial encounter for closed fracture; X58.XXXA Exposure to other specified factors, initial encounter; Y93.9 Activity, unspecified; Y92.9 Unspecified place or not applicable
CPT/HCPCS: 23655; 36415; 73020; 80053; 80185; 80300; 81025; 85025; 96361; 96374; 96375; 99284; J1165; J3010

== ENCOUNTER 2017-08-08 11:14 | Inpatient (IN) | payer MEDICAID ==
[~2017-08-08] VITALS: Ht 157.5 cm; Wt 57.2 kg
[~2017-08-08 11:14] MED LIST changes: +IBUPROFEN600 MG ORAL; -LORazepam Inj 2mg/ml 1ml IV ONE; +NORCO 5-325 TA1 EACH ORAL; -fentaNYL 100 mcg/2 mL IV ONE
[2017-08-08] MEDS ORDERED: LORazepam Inj 2mg/ml 1ml ONE (11:21)
[2017-08-08] MEDS ORDERED: LORazepam Inj 2mg/ml 1ml IV ONE (11:30)
[2017-08-08 11:33] VITALS: BP 114/77
--- NOTE | 2017-08-08 11:44 | Emergency Room Report ---
History of Present Illness General Chief Complaint: Seizure Source: Medical Record, EMS Present Illness HPI 36-year-old female brought in by EMS for 3 witnessed seizures Associated with multiple episodes of vomiting Review of EMR indicates patient has had multiple visits here also for seizures, alcohol abuse Patient allegedly is on Keppra and Dilantin per last visit here Not sure of current compliance given patient is now postictal No other family or friends bedside currently Allergies: Coded Allergies: No Known Allergies (Unverified , 08/05/13) Patient History Limited by: medical condition Past Medical History: seizures Past Surgical History: none Pertinent Family History: none Social History: Denies: smoking, alcohol use, drug use Now: No Immunizations: UTD Reviewed Nursing Documentation: PMH: Agreed, PSxH: Agreed Nursing Documentation-PMH Past Medical History: No History, Except For Hx Cardiac Problems: No Hx Cancer: No Hx Gastrointestinal Problems: No Hx Neurological Problems: Yes - SUBSTANCE ABUSE Hx Seizures: Yes Review of Systems All Other Systems: limited - Postictal Physical Exam Vital Signs Date Time Temp Pulse Resp B/P (MAP) Pulse Ox O2 Delivery O2 Flow Rate FiO2 08/08/17 11:10 98.4 100 20 156/102 98 Room Air 98.4 08/08/17 11:33 15.0 Sp02 EP Interpretation: reviewed, normal General Appearance: non-toxic, other - Covered in brown vomit, Postictal Head: normocephalic, atraumatic Eyes: bilateral eye PERRL, bilateral eye EOMI ENT: normal ENT inspection, hearing grossly normal, normal pharynx, no angioedema, normal voice, TMs + canals normal, uvula midline, moist mucus membranes Neck: normal inspection, full range of motion, supple, thyroid normal, no meningismus, no bony tend Respiratory: normal inspection, lungs clear, normal breath sounds, no rhonchi, no respiratory distress, no retraction, no accessory muscle use, no wheezing, speaking full sentences Cardiovascular #1: regular rate, rhythm, no edema, no JVD, normal capillary refill Gastrointestinal: normal inspection, normal bowel sounds, non tender, soft, no mass, no peritonitis, non-distended, no guarding, no hernia, no pulsatile mass Genitourinary: no CVA tenderness Musculoskeletal: normal inspection, back normal, normal range of motion, no calf tenderness, pelvis stable, Loni's Sign negative Neurologic: normal inspection, alert, responsive, glass cut off tender III-XII nml as tested, motor strength/tone normal, cerebellar normal, normal gait, speech normal Psychiatric: normal inspection, judgement/insight normal, mood/affect normal, no suicidal/homicidal ideation, no delusions Skin: normal inspection, normal color, no rash Lymphatic: normal inspection, no adenopathy Medical Decision Making Diagnostic Impression: Primary Impression: Seizure disorder ER Course Signs significant for tachycardia Was normotensive, afebrile Patient had additional seizure in the ER, was given IV Ativan and loaded with IV Keppra Dilantin level pending Patient with additional seizures either due to noncompliance or withdraw from alcohol abuse Requires additional admission for further evaluation Telemetry admission Dilantin level is 0 Mild leukocytosis likely stress reaction from seizure Major metabolic abnormalities etoh, Tylenol and aspirin levels are normal As of 121pm, still waiting on insurance for admission approval EKG Diagnostic Results Rate: normal Rhythm: NSR ST Segments: no acute changes ASA given to the pt in ED: No Rhythm Strip Diag. Results EP Interpretation: yes Rate: 101 Rhythm: NSR, no PVC's, no ectopy Last Vital Signs Date Time Temp Pulse Resp B/P (MAP) Pulse Ox O2 Delivery O2 Flow Rate FiO2 08/08/17 11:33 86 17 Non-Rebreather 15.0 08/08/17 11:33 96.5 114/77 100 96.5 Status: improved Disposition: ADMITTED INPATIENT Condition: Serious TORREY FONTENOT M.D. Aug 08, 2017 11:44
[2017-08-08] MEDS ORDERED: levETIRAcetam 1,000mg/NS100ml 100 ML IVPB ONE (11:45)
[2017-08-08 12:10] LABS: BASOPHILS % (AUTO) 1.7 % (0.0-2.0); EOSINOPHILS % (AUTO) 0.1 % (0.0-3.0); HEMATOCRIT 46.1 % (37.0-47.0); HEMOGLOBIN 14.9 G/DL (12.0-16.0); LYMPHOCYTES % (AUTO) 9.2 % (20.0-45.0); MEAN CORPUSCULAR VOLUME 97 FL (80-99); MONOCYTES % (AUTO) 4.6 % (1.0-10.0); NEUTROPHILS % (AUTO) 84.4 % (45.0-75.0); PLATELET COUNT 348 K/UL (150-450); RED BLOOD COUNT 4.76 M/UL (4.20-5.40); WHITE BLOOD COUNT 11.8 K/UL (4.8-10.8)
[2017-08-08 12:20] LABS: ANION GAP 22 mmol/L (5-15); BLOOD UREA NITROGEN 9 mg/dL (7-18); CALCIUM 9.1 MG/DL (8.5-10.1); CARBON DIOXIDE 15 MMOL/L (21-32); CHLORIDE 102 MMOL/L (98-107); CREATININE 1.2 MG/DL (0.55-1.30); POTASSIUM 3.5 MMOL/L (3.5-5.1); SODIUM 139 MMOL/L (136-145)
[2017-08-08 12:24] LABS: ALANINE AMINOTRANSFERASE 19 U/L (12-78); ALBUMIN 4.1 G/DL (3.4-5.0); ALBUMIN/GLOBULIN RATIO 0.9 (1.0-2.7); ALKALINE PHOSPHATASE 108 U/L (46-116); ASPARTATE AMINO TRANSFERASE 31 U/L (15-37); BILIRUBIN,TOTAL 0.5 MG/DL (0.2-1.0)
[2017-08-08 12:51] VITALS: BP 117/82
[2017-08-08 14:06] VITALS: BP 109/78
[2017-08-08] MEDS ORDERED: Norco 5mg/325mg tab ORAL PRN (18:45)
[2017-08-08 20:00] VITALS: BP 117/74
[2017-08-08] MEDS ORDERED: LORazepam Inj 2mg/ml 1ml IV PRN (21:45)
[2017-08-08] MEDS: Phenytoin 100mg cap ORAL SCH (22:07)
[2017-08-09] VITALS: BP 132/93
[2017-08-09 06:59] LABS: ALANINE AMINOTRANSFERASE 18 U/L (12-78); ALBUMIN 3.3 G/DL (3.4-5.0); ALBUMIN/GLOBULIN RATIO 0.8 (1.0-2.7); ALKALINE PHOSPHATASE 87 U/L (46-116); ANION GAP 14 mmol/L (5-15); ASPARTATE AMINO TRANSFERASE 29 U/L (15-37); BILIRUBIN,TOTAL 0.8 MG/DL (0.2-1.0); BLOOD UREA NITROGEN 7 mg/dL (7-18); CALCIUM 8.5 MG/DL (8.5-10.1); CARBON DIOXIDE 23 MMOL/L (21-32); CHLORIDE 99 MMOL/L (98-107); CREATININE 0.8 MG/DL (0.55-1.30); POTASSIUM 2.9 MMOL/L (3.5-5.1); SODIUM 135 MMOL/L (136-145)
[2017-08-09 08:00] VITALS: BP 111/93
[2017-08-09 12:00] VITALS: BP_SYST 103; BP_SYST 92; BP_DIAS 65; BP_DIAS 70
--- NOTE | 2017-08-09 13:44 | Neurology Progress Note ---
Objective Physical Exam Last Vital Signs Date Time Temp Pulse Resp B/P (MAP) Pulse Ox O2 Delivery O2 Flow Rate FiO2 08/09/17 12:00 98.1 78 20 92/70 98 98.1 08/09/17 08:00 Room Air 08/08/17 11:33 15.0 Laboratory Tests Test 08/09/17 05:10 Sodium Level 135 MMOL/L (136-145) L Potassium Level 2.9 MMOL/L (3.5-5.1) L Chloride Level 99 MMOL/L (98-107) Carbon Dioxide Level 23 MMOL/L (21-32) Anion Gap 14 mmol/L (5-15) Blood Urea Nitrogen 7 mg/dL (7-18) Creatinine 0.8 MG/DL (0.55-1.30) Estimat Glomerular Filtration Rate > 60 mL/min (>60) Glucose Level 66 MG/DL (74-106) L Calcium Level 8.5 MG/DL (8.5-10.1) Total Bilirubin 0.8 MG/DL (0.2-1.0) Aspartate Amino Transf (AST/SGOT) 29 U/L (15-37) Alanine Aminotransferase (ALT/SGPT) 18 U/L (12-78) Alkaline Phosphatase 87 U/L (46-116) Total Protein 7.4 G/DL (6.4-8.2) Albumin 3.3 G/DL (3.4-5.0) L Globulin 4.1 g/dL Albumin/Globulin Ratio 0.8 (1.0-2.7) L Impression/Recommendations Recommendations #[id number] ANDREW BARLOW Aug 09, 2017 13:44
[2017-08-09 16:00] VITALS: BP 101/71
--- NOTE | 2017-08-09 17:29 | History and Physical ---
History of Present Illness General Date patient seen: Aug 09, 2017 Reason for Hospitalization: Seizure Present Illness HPI This is a 36-year-old female with a past medical history of ETOH abuse and seizure disorder who was brought in by EMS for 3 witnessed seizures. Associated with multiple episodes of vomiting. Patient was in post-ictal state in the ED but now more awake and alert. She states that she takes Keppra and Dilantin at home but ran out of medications for unknown duration of time. She states that is why she is having recurring seizures. Allergies: Coded Allergies: No Known Allergies (Unverified , 08/05/13) Medication History Scheduled Levetiracetam (Keppra), 1,000 MG ORAL EVERY 12 HOURS, (Reported) Phenytoin Sodium Extended* (Dilantin*), 300 MG ORAL BEDTIME, (Reported) Scheduled PRN Hydrocodone Bit/Acetaminophen 5-325* ([place] 5-325*), 1 TAB ORAL Q6H PRN for For Pain Ibuprofen* (Motrin*), 600 MG ORAL Q6H PRN for For Pain Discontinued Medications Levetiracetam (Keppra), 500 MG ORAL EVERY 12 HOURS Discontinued Reason: MD discontinued med Levetiracetam (Keppra), 500 MG ORAL EVERY 12 HOURS, (Reported) Discontinued Reason: MD discontinued med No Known Medications* (NKM - No Known Medications*), 0 ., (Reported) Discontinued Reason: MD discontinued med Phenytoin Sodium Extended* (Dilantin*), 300 MG ORAL BEDTIME Discontinued Reason: MD discontinued med Phenytoin Sodium Extended* (Dilantin*), 200 MG ORAL TWICE A DAY, (Reported) Discontinued Reason: MD discontinued med Patient History History Provided By: Patient Healthcare decision maker Resuscitation status Full Code Advanced Directive on File Past Medical/Surgical History Past Medical/Surgical History: (1) Seizure disorder Review of Systems All Other Systems: negative except mentioned in HPI Physical Exam General Appearance: WD/WN, no apparent distress HEENT: normocephalic, atraumatic Respiratory/Chest: lungs clear Cardiovascular/Chest: normal rate, regularly irregular Abdomen: non tender, soft Neurologic: alert, oriented x 3 Last 24 Hour Vital Signs Date Time Temp Pulse Resp B/P (MAP) Pulse Ox O2 Delivery O2 Flow Rate FiO2 08/09/17 16:00 76 08/09/17 16:00 97.2 75 19 101/71 99 Room Air 97.2 08/09/17 12:00 98.1 78 20 103/65 98 98.1 08/09/17 12:00 75 08/09/17 08:00 95 08/09/17 08:00 97.1 82 20 111/93 99 Room Air 97.1 08/09/17 04:00 97 08/09/17 00:00 90 08/09/17 00:00 98.2 80 20 132/93 97 Room Air 98.2 08/08/17 20:00 91 08/08/17 20:00 97.5 88 16 117/74 100 Room Air 97.5 Intake and Output 08/08/17 08/09/17 19:00 07:00 Intake Total 460 ml 200 ml Balance 460 ml 200 ml Intake Oral 360 ml 200 ml IV Total 100 ml # Voids 2 Laboratory Tests Test 08/09/17 05:10 Sodium Level 135 MMOL/L (136-145) L Potassium Level 2.9 MMOL/L (3.5-5.1) L Chloride Level 99 MMOL/L (98-107) Carbon Dioxide Level 23 MMOL/L (21-32) Anion Gap 14 mmol/L (5-15) Blood Urea Nitrogen 7 mg/dL (7-18) Creatinine 0.8 MG/DL (0.55-1.30) Estimat Glomerular Filtration Rate > 60 mL/min (>60) Glucose Level 66 MG/DL (74-106) L Calcium Level 8.5 MG/DL (8.5-10.1) Total Bilirubin 0.8 MG/DL (0.2-1.0) Aspartate Amino Transf (AST/SGOT) 29 U/L (15-37) Alanine Aminotransferase (ALT/SGPT) 18 U/L (12-78) Alkaline Phosphatase 87 U/L (46-116) Total Protein 7.4 G/DL (6.4-8.2) Albumin 3.3 G/DL (3.4-5.0) L Globulin 4.1 g/dL Albumin/Globulin Ratio 0.8 (1.0-2.7) L Height (Feet): 5 Height (Inches): 2.00 Weight (Pounds): 126 Medications Current Medications Medications (Trade) Dose Ordered Sig/Kyle Route PRN Reason Start Time Stop Time Status Last Admin Dose Admin Acetaminophen/ Hydrocodone Bitart ([place] 5/325) 1 tab Q6H PRN ORAL For MOD TO SEV Pain 08/08/17 18:45 08/15/17 18:44 Dextrose (Dextrose 50%) STAT PRN IV Hypoglycemia 08/08/17 19:15 09/07/17 19:14 Ibuprofen (Motrin) 600 mg Q6H PRN ORAL For MILD Pain 08/08/17 18:45 09/07/17 18:44 Levetiracetam (Keppra) 1,000 mg Q12HR ORAL 08/08/17 21:00 09/07/17 20:59 08/09/17 08:43 Lorazepam (Ativan 2mg/ml 1ml) 2 mg Q4H PRN IV For Seizures 08/08/17 21:45 08/15/17 21:44 Phenytoin (Dilantin) 300 mg BEDTIME ORAL 08/08/17 21:00 09/07/17 20:59 08/08/17 22:07 Potassium Chloride (K-Dur) 20 meq TWICE A DAY ORAL 08/09/17 11:00 09/08/17 10:59 08/09/17 11:15 Assessment/Plan Problem List: (1) Seizure disorder ICD Codes: G40.909 - Epilepsy, unspecified, not intractable, without status epilepticus SNOMED: [id number], [id number] Assessment/Plan neuro eval. cont keppra and dilantin. seizure precautions. ativan prn. ZIGGY MENDEZ Aug 09, 2017 17:29
[2017-08-09 20:00] VITALS: BP 117/74
[2017-08-09] MEDS: Phenytoin 100mg cap ORAL SCH (21:11)
--- NOTE | 2017-08-09 21:30 | Consultation ---
DATE OF CONSULTATION: 08/09/2017 NEUROLOGICAL CONSULTATION DATE OF ADMISSION: 08/08/2017 REQUESTING PHYSICIAN: Ryan Camarena M.D. HISTORY OF PRESENT ILLNESS: This is a 36-year-old female, chronic generalized seizure disorder, came for re-evaluation, who was brought to this hospital for evaluation after having three witnessed seizures associated with episodes of vomiting. The patient indicated that she ran out of medication approximately couple of weeks ago. On arrival, vital signs included blood pressure 156/102 and heart rate of 100. EKG, normal sinus rhythm. Laboratory work was obtained revealing a toxicology level with phenytoin level less than 0.4. Chemistry panel, carbon dioxide of 15 and total protein 8.8. Hematology panel was unremarkable. Following admission till present, there was no further seizure activity. The patient is maintained on her anticonvulsants. MEDICATIONS: Her treatment prior to admission included Keppra 1500 mg b.i.d., phenytoin 300 mg at bedtime, and [place] as needed for pain. SOCIAL HISTORY: Unemployed, lives with her boyfriend, smoker, but denies alcohol or drug abuse. FAMILY HISTORY: Noncontributory. PHYSICAL EXAMINATION: GENERAL: A well-developed and well-nourished female, not in acute distress. VITAL SIGNS: Stable. Blood pressure 92/70 and temperature 98.1 degrees. HEENT: Head: Normocephalic. No evidence of trauma. Eyes, ears, and throat are clear. NECK: Supple. No meningeal signs. MUSCULOSKELETAL: Unremarkable. There are no deformities. Peripheral pulses 1+ symmetric. MENTAL STATUS: She is alert and oriented x3. No evidence of aphasia or apraxia. Cognitive function normal. Mood is somewhat depressed. CRANIAL NERVE II: Pupils both responding to light and accommodation. Extraocular movements intact. No nystagmus. CRANIAL NERVE V: Normal corneal responses. CRANIAL NERVE VII: No facial asymmetry. CRANIAL NERVE VIII: Normal hearing. CRANIAL NERVE IX THROUGH XII: Within normal limits. MOTOR EXAMINATION: Normal muscle tone and strength. Deep tendon reflexes 1+ symmetric. SENSORY EXAM: Normal in all modalities. Gait is slow, but stable. IMPRESSION: Chronic seizure disorder exacerbation due to noncompliance. RECOMMENDATION: Restart Keppra 1500 mg b.i.d. and Dilantin 300 mg at bedtime. Recheck blood levels of Dilantin to adjust her dose appropriately. The patient meanwhile will be observed for any additional paroxysmal events. Thank you for allowing me to see this interesting patient in neurological consultation. Jose Lopez M.D. DR: María JOB#: [id number] CC:
[2017-08-10] VITALS: BP 111/70
[2017-08-10 04:00] VITALS: BP 105/61
[2017-08-10 08:00] VITALS: BP 110/75
[2017-08-10 09:41] LABS: BASOPHILS % (AUTO) 1.6 % (0.0-2.0); EOSINOPHILS % (AUTO) 1.4 % (0.0-3.0); HEMATOCRIT 39.6 % (37.0-47.0); HEMOGLOBIN 13.7 G/DL (12.0-16.0); LYMPHOCYTES % (AUTO) 38.4 % (20.0-45.0); MEAN CORPUSCULAR VOLUME 94 FL (80-99); NEUTROPHILS % (AUTO) 46.7 % (45.0-75.0); PLATELET COUNT 297 K/UL (150-450); RED BLOOD COUNT 4.23 M/UL (4.20-5.40); RED CELL DISTRIBUTION WIDTH 13.3 % (11.6-14.8); WHITE BLOOD COUNT 7.8 K/UL (4.8-10.8)
[2017-08-10 10:20] LABS: ALANINE AMINOTRANSFERASE 15 U/L (12-78); ALBUMIN 3.8 G/DL (3.4-5.0); ALBUMIN/GLOBULIN RATIO 0.9 (1.0-2.7); ALKALINE PHOSPHATASE 87 U/L (46-116); ANION GAP 10 mmol/L (5-15); ASPARTATE AMINO TRANSFERASE 27 U/L (15-37); BILIRUBIN,TOTAL 0.9 MG/DL (0.2-1.0); BLOOD UREA NITROGEN 5 mg/dL (7-18); CALCIUM 8.8 MG/DL (8.5-10.1); CARBON DIOXIDE 27 MMOL/L (21-32); CHLORIDE 99 MMOL/L (98-107); CREATININE 0.8 MG/DL (0.55-1.30); POTASSIUM 3.5 MMOL/L (3.5-5.1); SODIUM 136 MMOL/L (136-145)
[2017-08-10 12:00] VITALS: BP 113/78
--- NOTE | 2017-08-10 19:30 | Consultation ---
DATE OF CONSULTATION: 08/10/2017 MEDICAL CONSULTATION TIME SEEN: At 9 a.m. CONSULTING PHYSICIAN: Robert Anderson D.O. CHIEF COMPLAINT: Status epilepticus. BRIEF HISTORY: This is a 36-year-old female, who has history seizure and apparently had big seizure yesterday with positive loss of consciousness, not sure if she became incontinent. The patient was brought to [facility], diagnosed with status epilepticus, and admitted to telemetry for further care. Currently, feeling better, slight headache, no complaint. REVIEW OF SYSTEMS: No chest pain. No shortness of breath. No nausea, vomiting, or diarrhea. PAST MEDICAL HISTORY: Seizure that started nine years ago. Apparently, she ran out of her seizure medications two weeks ago and has not had a chance to refill it. PAST SURGICAL HISTORY: None. MEDICATIONS: K-Dur, Ativan, Dilantin, Keppra, Motrin, and [place]. ALLERGIES: Denies. SOCIAL HISTORY: Positive smoke. Positive alcohol. No intravenous drug abuse. FAMILY HISTORY: Noncontributory. PHYSICAL EXAMINATION: GENERAL: Calm in bed, oriented x3, and in no acute distress. VITAL SIGNS: Temperature 97, pulse 78, respirations 22, and blood pressure 110/78. CARDIOVASCULAR: No murmur. LUNGS: Distant and clear. ABDOMEN: Bowel sounds positive. Nontender. Nondistended. EXTREMITIES: No cyanosis, clubbing, or edema. NEUROLOGIC: The patient moves all extremities, slightly weak. LABORATORY AND DIAGNOSTIC DATA: Labs at this time show white count 11.8, otherwise CBC is normal. BMP shows sodium 135, potassium 2.9, and glucose 66. Urine-tox, phenytoin less than 0.4 and Tylenol less than 2. ASSESSMENT: 1. Seizure, status post epilepticus. 2. Leukocytosis. 3. Hypokalemia. PLAN: 1. Continue pre-admit medications. 2. Increase p.o. fluids. 3. Replace potassium. 4. Adjust seizure medications. 5. CBC and BMP in the morning. 6. We will continue to follow this patient medically. Robert Anderson D.O. DR: KE JOB#: [id number] CC:
--- NOTE | 2017-08-11 12:53 | Discharge Summary ---
Discharge Summary Hospital Course Date of Admission Aug 08, 2017 at 13:48 Date of Discharge Aug 10, 2017 at 13:50 Admitting Diagnosis Status epilepticus EHSAN Tariq is a 36-year-old female with a past medical history of ETOH abuse and seizure disorder who was brought in by EMS for 3 witnessed seizures. Associated with multiple episodes of vomiting. Patient was in post-ictal state in the ED but now more awake and alert. She states that she takes Keppra and Dilantin at home but ran out of medications for unknown duration of time. She states that is why she is having recurring seizures. Consultations Neuro - Dr. Lopez. Hospital Course Patient was placed on seizure precautions. She was seen y Dr. Lopez who increased her Keppra dosage to 1000 mg po bid. Dilantin was resumed at 300 mg po qhs. She had no recurrent seizure since admission. She wished to be discharged home with RX. She was hemodynamically stable. Discharge Medications Continued Medications: Hydrocodone Bit/Acetaminophen 5-325* ([place] 5-325*) 1 Each Tablet 1 TAB ORAL Q6H PRN for For Pain, #8 TAB 0 Refills Ibuprofen* (Motrin*) 600 Mg Tablet 600 MG ORAL Q6H PRN for For Pain, #16 TAB Levetiracetam (Keppra) 1,000 Mg Tablet 1000 MG ORAL EVERY 12 HOURS, #30 TAB 0 Refills Phenytoin Sodium Extended* (Dilantin*) 100 Mg Capsule 300 MG ORAL BEDTIME, #90 CAP Discontinued Medications: Levetiracetam (Keppra) 250 Mg Tablet 500 MG ORAL EVERY 12 HOURS, #60 TAB 0 Refills Levetiracetam (Keppra) 500 Mg Tablet 500 MG ORAL EVERY 12 HOURS, #60 TAB 0 Refills No Known Medications* (NKM - No Known Medications*) . 0 ., 0 Refills Phenytoin Sodium Extended* (Dilantin*) 100 Mg Capsule 300 MG ORAL BEDTIME, #90 CAP Phenytoin Sodium Extended* (Dilantin*) 100 Mg Capsule 200 MG ORAL TWICE A DAY, #60 CAP 0 Refills Discharge Condition Upon Discharge: stable Discharge Disposition Patient was discharged to Home (01) Discharge Diagnoses: (1) Status epilepticus ZIGGY MENDEZ Aug 11, 2017 12:53
--- NOTE | 2017-08-12 18:50 | Cardiology Report ---
APPROVED REPORT EKG Measurement Heart [id number] Normal sinus rhythm Normal ECG
== END 2017-08-10 13:50 | disposition home or self-care (01) | DRG 53 ==
LOC: EDBD 11:14 → EDBEDREQ 11:30 → EMR 11:42 → 2E 13:48 → EDBEDREQ 14:07 → 2E 15:01
DX: G40.901 Epilepsy, unspecified, not intractable, with status epilepticus (principal); E87.6 Hypokalemia; F17.200 Nicotine dependence, unspecified, uncomplicated; Z91.14 Patient's other noncompliance with medication regimen
CPT/HCPCS: 36415; 80053; 80185; 80299; 80329; 82962; 85025; 93005; 99285; J2405; J8499

== ENCOUNTER 2017-11-05 06:16 | Emergency (ER) | payer MEDICAID ==
[~2017-11-05] VITALS: Ht 154.9 cm; Wt 54.4 kg
[2017-11-05 06:35] VITALS: BP 143/79
[2017-11-05] MEDS ORDERED: LORazepam Inj 2mg/ml 1ml ONE (06:37)
[2017-11-05] MEDS ORDERED: levETIRAcetam 500 MG in D5W 110 ML IV ONE (06:45)
[2017-11-05] MEDS ORDERED: Phenytoin 1,000 MG in NS 275 ML IV ONE (06:45)
[2017-11-05] MEDS ORDERED: LORazepam Inj 2mg/ml 1ml IV ONE (06:45)
[2017-11-05 07:21] LABS: APPEARANCE,URINE CLEAR; BILIRUBIN, URINE NEGATIVE (NEGATIVE); COLOR,URINE PALE YELLOW; GLUCOSE, URINE (UA) NEGATIVE (NEGATIVE); KETONES,URINE 3+ (NEGATIVE); LEUKOCYTE ESTERASE ,URINE NEGATIVE (NEGATIVE); NITRITE,URINE NEGATIVE (NEGATIVE); PH,URINE 5 (4.5-8.0); PROTEIN,URINE 2+ (NEGATIVE); UROBILINOGEN,URINE NORMAL MG/DL (0.0-1.0)
[2017-11-05 07:23] LABS: BASOPHILS % (AUTO) 0.9 % (0.0-2.0); HEMATOCRIT 41.9 % (37.0-47.0); HEMOGLOBIN 13.6 G/DL (12.0-16.0); LYMPHOCYTES % (AUTO) 14.9 % (20.0-45.0); MEAN CORPUSCULAR VOLUME 92 FL (80-99); MONOCYTES % (AUTO) 4.8 % (1.0-10.0); NEUTROPHILS % (AUTO) 79.4 % (45.0-75.0); PLATELET COUNT 368 K/UL (150-450); RED BLOOD COUNT 4.55 M/UL (4.20-5.40); WHITE BLOOD COUNT 17.4 K/UL (4.8-10.8)
[2017-11-05 07:30] LABS: ANION GAP 27 mmol/L (5-15); BLOOD UREA NITROGEN 11 mg/dL (7-18); CALCIUM 8.7 MG/DL (8.5-10.1); CARBON DIOXIDE 11 MMOL/L (21-32); CHLORIDE 100 MMOL/L (98-107); CREATININE 1.2 MG/DL (0.55-1.30); SODIUM 138 MMOL/L (136-145)
[2017-11-05 07:31] LABS: ALANINE AMINOTRANSFERASE 26 U/L (12-78); ALBUMIN/GLOBULIN RATIO 0.9 (1.0-2.7); ALKALINE PHOSPHATASE 101 U/L (46-116); ASPARTATE AMINO TRANSFERASE 40 U/L (15-37); BILIRUBIN,TOTAL 0.3 MG/DL (0.2-1.0); CREATINE KINASE 397 U/L (26-308)
--- NOTE | 2017-11-05 07:32 | Emergency Room Report ---
History of Present Illness General Chief Complaint: Seizure Source: Patient, Significant Other, EMS Present Illness HPI This patient has a history of seizure disorder. She also has a history of EtOH abuse. She is accompanied by her boyfriend. They're currently homeless. The patient's boyfriend reports that she has been drinking a lot lately. He states that she had 3 seizures this morning. That she has been off of her seizure medications for at least the past 2 weeks because she just drinks and does not take her medications. He states that she does have her medications that she has not been taking them of her own personal choice. He reports that she has been in her normal state of health. There are no other illness, injuries or other complaints. Allergies: Coded Allergies: No Known Allergies (Unverified , 08/05/13) Patient History Past Medical History: see triage record, seizures Social History: Reports: alcohol use, drug use Last Menstrual Period: unk Reviewed Nursing Documentation: PMH: Agreed; PSxH: Agreed Nursing Documentation-PMH Hx Cardiac Problems: No Hx Cancer: No Hx Gastrointestinal Problems: No Hx Neurological Problems: Yes - SUBSTANCE ABUSE Hx Seizures: Yes Review of Systems All Other Systems: negative except mentioned in HPI Physical Exam Vital Signs Date Time Temp Pulse Resp B/P (MAP) Pulse Ox O2 Delivery O2 Flow Rate FiO2 11/05/17 06:22 97.1 87 16 143/79 100 Room Air 97.2 Sp02 EP Interpretation: reviewed, normal General Appearance: non-toxic, other - Actively seizing on my evaluation. Head: normocephalic, atraumatic Eyes: bilateral eye normal inspection ENT: no angioedema Neck: full range of motion, supple/symm/no masses Respiratory: chest non-tender, lungs clear, normal breath sounds, no respiratory distress, no retraction, no accessory muscle use, speaking full sentences Cardiovascular #1: regular rate, rhythm, no edema, tachycardia Gastrointestinal: normal inspection, soft, non-distended Rectal: deferred Musculoskeletal: normal inspection, normal range of motion Neurologic: other - Unable to assess. Actively seizing. Non-focal. Skin: normal color, no rash, warm/dry, well hydrated Medical Decision Making Diagnostic Impression: Primary Impression: Seizure disorder Additional Impression: Alcohol abuse ER Course I suspect the seizures that the patient is presenting with is non-emergent in etiology. The patient has a history of seizures in the past and has returned to baseline with normal neurologic status. The patient is not immunocompromised with no history of known structural brain disease. The patient does not have persistent altered mental status, fever or new focal neurologic deficit. Laboratory workup was noncontributory other than that the patient has not been taking her antiseizure medications. I doubt meningitis so a lumbar puncture was not performed. The patient was counseled that, though unlikely, the possibility of an emergent cause of seizure may still be present and that the patient should return immediately if symptoms persist or worsen. The patient was educated on the importance of compliance with her seizure medications. I did give the patient IV keppra and Dilantin loaded her. She had no further seizures during her ED course. Laboratory Tests Test 11/05/17 06:30 White Blood Count 17.4 K/UL (4.8-10.8) H Red Blood Count 4.55 M/UL (4.20-5.40) Hemoglobin 13.6 G/DL (12.0-16.0) Hematocrit 41.9 % (37.0-47.0) Mean Corpuscular Volume 92 FL (80-99) Mean Corpuscular Hemoglobin 29.8 PG (27.0-31.0) Mean Corpuscular Hemoglobin Concent 32.4 G/DL (32.0-36.0) Red Cell Distribution Width 16.0 % (11.6-14.8) H Platelet Count 368 K/UL (150-450) Mean Platelet Volume 6.3 FL (6.5-10.1) L Neutrophils (%) (Auto) 79.4 % (45.0-75.0) H Lymphocytes (%) (Auto) 14.9 % (20.0-45.0) L Monocytes (%) (Auto) 4.8 % (1.0-10.0) Eosinophils (%) (Auto) 0.0 % (0.0-3.0) Basophils (%) (Auto) 0.9 % (0.0-2.0) Urine Color Pale yellow Urine Appearance Clear Urine pH 5 (4.5-8.0) Urine Specific [place] 1.025 (1.005-1.035) Urine Protein 2+ (NEGATIVE) H Urine Glucose (UA) Negative (NEGATIVE) Urine Ketones 3+ (NEGATIVE) H Urine Occult Blood 3+ (NEGATIVE) H Urine Nitrite Negative (NEGATIVE) Urine Bilirubin Negative (NEGATIVE) Urine Urobilinogen Normal MG/DL (0.0-1.0) Urine Leukocyte Esterase Negative (NEGATIVE) Urine RBC 5-10 /HPF (0 - 2) H Urine WBC 2-4 /HPF (0 - 2) Urine Squamous Epithelial Cells Many /LPF (NONE/OCC) H Urine Bacteria Few /HPF (NONE) Urine Trichomonas Few /HPF (NONE) H Urine HCG, Qualitative Negative (NEGATIVE) Sodium Level 138 MMOL/L (136-145) Potassium Level 4.0 MMOL/L (3.5-5.1) Chloride Level 100 MMOL/L (98-107) Carbon Dioxide Level 11 MMOL/L (21-32) L Anion Gap 27 mmol/L (5-15) H Blood Urea Nitrogen 11 mg/dL (7-18) Creatinine 1.2 MG/DL (0.55-1.30) Estimate Glomerular Filtration Rate > 60 mL/min (>60) Glucose Level 107 MG/DL (74-106) H Calcium Level 8.7 MG/DL (8.5-10.1) Total Bilirubin 0.3 MG/DL (0.2-1.0) Aspartate Amino Transferase (AST) 40 U/L (15-37) H Alanine Aminotransferase (ALT) 26 U/L (12-78) Alkaline Phosphatase 101 U/L (46-116) Total Creatine Kinase 397 U/L (26-308) H Troponin I 0.000 ng/mL (0.000-0.056) Total Protein 8.6 G/DL (6.4-8.2) H Albumin 4.0 G/DL (3.4-5.0) Globulin 4.6 g/dL Albumin/Globulin Ratio 0.9 (1.0-2.7) L Urine Opiates Screen Negative (NEGATIVE) Urine Barbiturates Screen Negative (NEGATIVE) Phenytoin (Dilantin) Level < 0.5 ug/mL (10-20) L Phencyclidine (PCP) Screen Negative (NEGATIVE) Urine Amphetamines Screen Negative (NEGATIVE) Urine Benzodiazepines Screen Negative (NEGATIVE) Urine Cocaine Screen Negative (NEGATIVE) Urine Marijuana (THC) Screen Positive (NEGATIVE) H Serum Alcohol 7 mg/dL EKG Diagnostic Results Rate: tachycardiac Rhythm: other - S.tachycardia ST Segments: no acute changes Rhythm Strip Diag. Results EP Interpretation: yes Rate: 110's Rhythm: no PVC's, no ectopy, other - S.tachycardia Last Vital Signs Date Time Temp Pulse Resp B/P (MAP) Pulse Ox O2 Delivery O2 Flow Rate FiO2 11/05/17 06:35 87 16 Room Air 11/05/17 06:35 97.2 143/79 100 97.2 Status: improved Disposition: HOME, SELF-CARE Condition: Improved Referrals: [facility],REFERRING (PCP) Vikki Velazco DO Nov 05, 2017 07:32
[2017-11-05 08:03] VITALS: BP 120/85
[2017-11-05 10:00] VITALS: BP 131/99
[2017-11-05] MEDS ORDERED: chlordiazePOXIDE 25mg Cap ORAL ONE (11:45)
[2017-11-05 14:08] VITALS: BP 128/85
--- NOTE | 2017-11-06 15:02 | Cardiology Report ---
APPROVED REPORT EKG Measurement Heart [id number] Sinus tachycardia Possible Left atrial enlargement Borderline ECG
== END 2017-11-05 14:09 | disposition home or self-care (01) ==
LOC: EDBD 06:16 → EMR 06:42
DX: G40.909 Epilepsy, unspecified, not intractable, without status epilepticus (principal); F10.10 Alcohol abuse, uncomplicated
CPT/HCPCS: 36415; 80053; 80185; 80307; 80329; 81003; 81025; 82550; 84484; 85025; 93005; 96361; 96365; 96374; 99284; J1165; J1953; J7050

== ENCOUNTER 2017-11-26 18:00 | Emergency (ER) | payer MEDICAID ==
[~2017-11-26] VITALS: Ht 157.5 cm; Wt 58.1 kg
[2017-11-26 18:14] VITALS: BP 118/84
--- NOTE | 2017-11-26 18:28 | Emergency Room Report ---
History of Present Illness General Chief Complaint: Shoulder Injury Source: Patient, Medical Record (Xavier Nielsen) Present Illness HPI 36-year-old female patient presents ER complaining of blisters on left foot. Reports parents 2 blisters 1 day. Reports no recent trauma. Denies fever, chest pain, shortness of breath, other acute symptoms. Denies sloughing of skin. Denies leading or drainage. Reports walks a lot. Also requesting follow -up on shoulder dislocation. Reports history of seizure 4 months ago where she dislocated her right shoulder. Denies pain at this time. Reports history of multiple dislocations of shoulder. Reports if she raises her arm above her head she feels her shoulder pop out. Denies acute injury or trauma. Denies loss of sensation. (Xavier Nielsen) Allergies: Coded Allergies: No Known Allergies (Unverified , 08/05/13) Patient History Past Medical History: see triage record Last Menstrual Period: 11/07/17 Reviewed Nursing Documentation: PMH: Agreed; PSxH: Agreed (Xavier Nielsen) Nursing Documentation-PMH Past Medical History: No History, Except For Hx Cardiac Problems: No Hx Cancer: No Hx Gastrointestinal Problems: No Hx Neurological Problems: Yes - SUBSTANCE ABUSE Hx Seizures: Yes (Xavier Nielsen) Review of Systems All Other Systems: negative except mentioned in HPI (Xavier Nielsen) Physical Exam Vital Signs Date Time Temp Pulse Resp B/P (MAP) Pulse Ox O2 Delivery O2 Flow Rate FiO2 11/26/17 18:05 98.3 90 18 118/84 100 Room Air 98.2 Sp02 EP Interpretation: reviewed, normal General Appearance: well appearing, no apparent distress, alert, GCS 15, non- toxic Head: normocephalic, atraumatic Eyes: bilateral eye normal inspection, bilateral eye PERRL ENT: hearing grossly normal, normal pharynx, no angioedema, normal voice, uvula midline, moist mucus membranes Neck: full range of motion Respiratory: lungs clear, normal breath sounds, no rhonchi, no respiratory distress, no accessory muscle use, no wheezing, speaking full sentences Cardiovascular #1: regular rate, rhythm, no edema Cardiovascular #2: 2+ radial (R), 2+ radial (L), 2+ dorsalis pedis (R), 2+ dorsalis pedis (L) Musculoskeletal: back normal, digits/nails normal, gait/station normal, normal range of motion, non-tender, other - NVI, axillary nerve intact, no tenderness to palpation, negative sulcus sign, negative skin tenting Neurologic: alert, oriented x3, responsive, motor strength/tone normal, sensory intact Psychiatric: mood/affect normal Skin: other - left foot: lateral aspect of the big toe: 1-2cm cutaneous blister and dorsum of the fourth toe near nail fold: no bleeding, no drainage, TTP, no erythema or edema of surrounding tissue (Xavier Nielsen) Medical Decision Making PA Attestation Dr. Biggs is my supervising Physician whom patient management has been discussed with. (Xavier Nielsen) Diagnostic Impression: Primary Impression: Hx of dislocation of shoulder Additional Impression: Blister of foot without infection Qualified Codes: S90.822A - Blister (nonthermal), left foot, initial encounter ER Course Pt. presents to the ED c/o blisters and shoulder follow-up. multiple differentials considered. Vital signs: are WNL, pt. is afebrile Ordered X-ray and pain medication. ER COURSE Provided with pain medication. An X-ray of the right shoulder negative for acute disease or dislocation, consistent with previous imaging performed per the preliminary reading. Patient instructed on RICE method: rest, ice, compression, elevation. Patient instructed on rest, ice and heat. Patient instructed to be WBAT Followup with primary care provider. Discuss referral to ortho/pain management/ PT as needed. Discuss further imaging with MRI/CT as needed. provided with contact information for orthopedic urgent care unable to establish care with primary care provider and get referral. Physical exam shows blisters on skin consistent with cutaneous lesions. no generalized lesions over entire body, localized to foot. low suspicion for SJS, scalded skin syndrome, TEN. Patient is afebrile, nontoxic-appearing, low suspicion for systemic etiology symptoms. Provided care instructions. discussed care instructions. blisters covered and protected with clean sterile dressing. Bacitracin applied. Do not pop blister. do not scratch. If it pops wash thoroughly with soap and water. patient afebrile, nontoxic appearing,skin, low suspicion for underlying etiology that requires emergent ER intervention. take Tylenol for pain symptoms. Wear proper shoes. DISCHARGE: -Rx provided for Tylenol for pain symptoms. At this time pt. is stable for d/c to home. Patient is resting comfortably, in no acute distress, nontoxic appearing, talking without difficulty. Will provide printed patient care instructions, and any necessary prescriptions. Patient instructed to follow with primary care provider in 3 - 5 days and to request further follow-up as needed. Care plan and follow up instructions have been discussed with the patient prior to discharge. Take medications as directed. Patient questions asked and answered. Patient reports understanding and agreement to treatment plan. ER precautions given, patient instructed to return to ER immediately for any new or worsening of symptoms. - Please note that this Emergency Department Report was dictated using [employer] sales advertising executive technology software, occasionally this can lead to erroneous entry secondary to interpretation by the dictation equipment. (Xavier Nielsen) Other X-Ray Diagnostic Results Other X-Ray Diagnostic Results : X-Ray ordered: right shoulder # of Views/Limited Vs Complete: 3 View Indication: Pain EP Interpretation: Yes PA Xray: Interpretation reviewed, by supervising MD, and agrees with findings. Interpretation: no dislocation, no soft tissue swelling, no fractures, other - old fracture Impression: No acute disease PA Scribe Text Quan Nielsen PA-C (Xavier [email or web address]) Other X-Ray Diagnostic Results : Electronically Signed by: Scribe documentation reviewed by me and is accurate, Santy Biggs MD. (Santy Biggs M.D.) Last Vital Signs Date Time Temp Pulse Resp B/P (MAP) Pulse Ox O2 Delivery O2 Flow Rate FiO2 11/26/17 18:14 98.2 18 118/84 100 Room Air 98.2 11/26/17 18:05 90 (Xavier Nielsen) Disposition: HOME, SELF-CARE Condition: Stable Scripts Acetaminophen* (TYLENOL EXTRA STRENGTH*) 500 Mg Tablet 500 MG ORAL Q8H PRN for Prn Headache/Temp > 101, #30 TAB 0 Refills Prov: Xavier Nielsen 11/26/17 Patient Instructions: Blisters, Shoulder Pain, [id number], Shoulder Range of Motion Exercises Additional Instructions: Patient instructed to follow up with primary care provider and discuss further referral to orthopedics. Patient instructed on RICE method: rest, ice, compression, elevation. Patient instructed to WBAT. Take medications as directed. Keep skin clean and dry. Apply protective covering to blister. If blister pops make sure to wash thoroughly with soap. Do not popped blister. Patient questions asked and answered. ER precautions given, patient instructed to return to ER immediately for any new or worsening of symptoms. Xavier Nielsen Nov 26, 2017 18:28 Santy Biggs M.D. Nov 27, 2017 01:05
[2017-11-26] MEDS ORDERED: TYLENOL EXTRA500 MG ORAL (18:44)
[2017-11-26] MEDS ORDERED: Bacitracin Oint UD TOPIC ONE (18:45)
[2017-11-26 18:50] VITALS: BP 118/84
--- NOTE | 2017-11-27 10:33 | Diagnostic Imaging Report ---
Indication: Pain Technique: XRAY Shoulder Compl R Comparison: 01/04/2017 Findings: Chronic deformity of the humeral head related to prior greater tuberosity fracture (seen on radiograph of 01/04/2017) as well as Hill-Sachs deformity. Humeral head is seated in the glenoid; no evidence of dislocation. Imaged right lung is clear. No radiopaque foreign body identified. Impression: Chronic fracture/deformity of the humerus. No evidence of acute fracture or dislocation.
== END 2017-11-26 18:50 | disposition home or self-care (01) ==
LOC: EMR 18:28
DX: S90.822A Blister (nonthermal), left foot, initial encounter (principal); M25.511 Pain in right shoulder
CPT/HCPCS: 99283

== ENCOUNTER 2018-03-03 14:32 | Emergency (ER) | payer MEDICAID ==
[~2018-03-03] VITALS: Ht 162.6 cm; Wt 52.2 kg
[~2018-03-03 14:32] MED LIST changes: +TYLENOL EXTRA500 MG ORAL
--- NOTE | 2018-03-03 14:41 | Emergency Room Report ---
History of Present Illness General Chief Complaint: Seizure Source: Patient, Family Member Present Illness HPI 37-year-old female, history of seizures p/w seizure. Patient had witnessed seizure by her boyfriend at [facility], generalized tonic clonic, lasted 2 minutes. Did not hit head on ground. +post ictal phase for 30 minutes. no tongue biting, no urinary incontinence. Patient has had seizures for several years. Anti seizure medications include Keppra. Patient has been compliant with medication. She takes 500 mg twice a day and took it this morning No recent fever, chills, chest pain, sob, cough, n/v/d, abdominal pain. Admits to occasional alcohol use, about 10 beers every other day, but no recent drinking Currently denying SERRANO, neck pain, blurry vision, motor or sensory weakness. Denies being Allergies: Coded Allergies: No Known Allergies (Unverified , 08/05/13) Patient History Past Medical History: see triage record Past Surgical History: none Pertinent Family History: none Now: No Reviewed Nursing Documentation: PMH: Agreed; PSxH: Agreed Nursing Documentation-PMH Past Medical History: No History, Except For Hx Cardiac Problems: No Hx Cancer: No Hx Gastrointestinal Problems: No Hx Neurological Problems: Yes - SUBSTANCE ABUSE Hx Seizures: Yes Review of Systems All Other Systems: negative except mentioned in HPI Physical Exam Vital Signs Date Time Temp Pulse Resp B/P (MAP) Pulse Ox O2 Delivery O2 Flow Rate FiO2 03/03/18 14:25 98.4 101 18 130/92 98 Room Air 98.4 Sp02 EP Interpretation: reviewed, normal General Appearance: alert, GCS 15, non-toxic, mild distress Head: normocephalic, atraumatic Eyes: bilateral eye normal inspection, bilateral eye PERRL, bilateral eye EOMI ENT: normal ENT inspection, normal pharynx, normal voice, moist mucus membranes Neck: normal inspection, full range of motion, supple Respiratory: normal inspection, lungs clear, normal breath sounds, no respiratory distress, no retraction, no wheezing, speaking full sentences, chest symmetrical Cardiovascular #1: normal inspection, regular rate, rhythm, no edema, normal capillary refill Cardiovascular #2: 2+ radial (R), 2+ radial (L) Gastrointestinal: normal inspection, non tender, soft, non-distended, no guarding Musculoskeletal: normal inspection, back normal, normal range of motion, non- tender Neurologic: normal inspection, alert, oriented x3, responsive, motor strength/ tone normal, sensory intact, normal gait, speech normal Psychiatric: normal inspection, judgement/insight normal, memory normal Skin: normal inspection, normal color, no rash, warm/dry, well hydrated, normal turgor Procedures Critical Care Time Critical Care Time 40 minutes of CC time 37-year-old female, status epilepticus, record very close cardiopulmonary monitoring Anticipate admission to Tele vs. CESAR CC time also includes review of labs, review of EMR, discussion with family and paperwork from SNF, d/w hospitalist CC could include dosing of pressors, additional Abx CC time does not include procedures Medical Decision Making Diagnostic Impression: Primary Impression: Seizure disorder Additional Impression: Status epilepticus ER Course 37-year-old female history of seizures with p/w seizure DDX: Primary seizure, triggered by infection UTI/PNA vs. dehydration vs. medication non compliance Electrolyte disturbance: hypoglycemia vs. hyponatremia vs. hypocalcemia vs. hypomagnesemia Cardiac: Arrythmia Tox Plan: BGM EKG, UCG Labs, seizure medication levels, tox labs Consider CT Ativan PRN / anti seizure meds ER course: pt had witnessed seizure here for [address], stopped spontaneously keppra IV given Disposition: Patient will be Admitted to the hospital, telemetry, status epilepticus, Patient now with 2 seizures in 24 hours Patiently that be transferred to outside hospital secondary to insurance purposes. I signed out patient to hospitalist Dr. Lu EKG Diagnostic Results EP Interpretation: Yes Rate: normal Rhythm: NSR ST Segments: Diffuse ST depressions, prolonged QT 602 ASA given to patient: No Rhythm Strip EP Interpretation: Yes Rate: 70 Rhythm: NSR, no PVCs, no ectopy Laboratory Tests Test 03/03/18 14:50 White Blood Count 17.5 K/UL (4.8-10.8) H Red Blood Count 4.24 M/UL (4.20-5.40) Hemoglobin 12.9 G/DL (12.0-16.0) Hematocrit 39.2 % (37.0-47.0) Mean Corpuscular Volume 92 FL (80-99) Mean Corpuscular Hemoglobin 30.4 PG (27.0-31.0) Mean Corpuscular Hemoglobin Concent 32.9 G/DL (32.0-36.0) Red Cell Distribution Width 18.1 % (11.6-14.8) H Platelet Count 360 K/UL (150-450) Mean Platelet Volume 6.2 FL (6.5-10.1) L Neutrophils (%) (Auto) 57.3 % (45.0-75.0) Lymphocytes (%) (Auto) 30.3 % (20.0-45.0) Monocytes (%) (Auto) 8.6 % (1.0-10.0) Eosinophils (%) (Auto) 1.8 % (0.0-3.0) Basophils (%) (Auto) 2.0 % (0.0-2.0) Sodium Level 144 MMOL/L (136-145) Potassium Level 3.1 MMOL/L (3.5-5.1) L Chloride Level 103 MMOL/L (98-107) Carbon Dioxide Level 10 MMOL/L (21-32) L Anion Gap 32 mmol/L (5-15) H Blood Urea Nitrogen 7 mg/dL (7-18) Creatinine 1.0 MG/DL (0.55-1.30) Estimate Glomerular Filtration Rate > 60 mL/min (>60) Glucose Level 130 MG/DL (74-106) H Calcium Level 9.0 MG/DL (8.5-10.1) Total Bilirubin 0.5 MG/DL (0.2-1.0) Aspartate Amino Transferase (AST) 22 U/L (15-37) Alanine Aminotransferase (ALT) 18 U/L (12-78) Alkaline Phosphatase 112 U/L (46-116) Total Creatine Kinase 260 U/L (26-308) Troponin I 0.001 ng/mL (0.000-0.056) Total Protein 8.6 G/DL (6.4-8.2) H Albumin 3.8 G/DL (3.4-5.0) Globulin 4.8 g/dL Albumin/Globulin Ratio 0.8 (1.0-2.7) L Salicylates Level 5.6 ug/mL (2.8-20) Acetaminophen Level < 2 MCG/ML (10-30) L Phenytoin (Dilantin) Level 0.5 ug/mL (10-20) L Serum Alcohol 8 mg/dL CT/MRI/US Diagnostic Results CT/MRI/US Diagnostic Results : Imaging Test Ordered: ct head Impression Impression: No mass effect, edema or acute bleed. Last Vital Signs Date Time Temp Pulse Resp B/P (MAP) Pulse Ox O2 Delivery O2 Flow Rate FiO2 03/03/18 14:25 98.4 101 18 130/92 98 Room Air 98.4 Disposition: [facility] Condition: Serious Patient Instructions: Seizure, Adult Nirmal Storey M.D. Mar 03, 2018 14:41
[2018-03-03] MEDS ORDERED: levETIRAcetam 1,000mg/NS100ml 100 ML IVPB ONE (14:45)
[2018-03-03] MEDS ORDERED: LORazepam Inj 2mg/ml 1ml ONE (14:46)
[2018-03-03 15:26] VITALS: BP 111/72
[2018-03-03 15:37] LABS: EOSINOPHILS % (AUTO) 1.8 % (0.0-3.0); HEMATOCRIT 39.2 % (37.0-47.0); HEMOGLOBIN 12.9 G/DL (12.0-16.0); LYMPHOCYTES % (AUTO) 30.3 % (20.0-45.0); MEAN CORPUSCULAR VOLUME 92 FL (80-99); MONOCYTES % (AUTO) 8.6 % (1.0-10.0); NEUTROPHILS % (AUTO) 57.3 % (45.0-75.0); PLATELET COUNT 360 K/UL (150-450); RED BLOOD COUNT 4.24 M/UL (4.20-5.40); RED CELL DISTRIBUTION WIDTH 18.1 % (11.6-14.8); WHITE BLOOD COUNT 17.5 K/UL (4.8-10.8)
[2018-03-03] MEDS ORDERED: LORazepam Inj 2mg/ml 1ml IV ONE (15:45)
[2018-03-03 15:59] LABS: ALANINE AMINOTRANSFERASE 18 U/L (12-78); ALBUMIN 3.8 G/DL (3.4-5.0); ALBUMIN/GLOBULIN RATIO 0.8 (1.0-2.7); ALKALINE PHOSPHATASE 112 U/L (46-116); ANION GAP 32 mmol/L (5-15); ASPARTATE AMINO TRANSFERASE 22 U/L (15-37); BILIRUBIN,TOTAL 0.5 MG/DL (0.2-1.0); BLOOD UREA NITROGEN 7 mg/dL (7-18); CARBON DIOXIDE 10 MMOL/L (21-32); CHLORIDE 103 MMOL/L (98-107); CREATINE KINASE 260 U/L (26-308); POTASSIUM 3.1 MMOL/L (3.5-5.1); SODIUM 144 MMOL/L (136-145)
--- NOTE | 2018-03-03 16:04 | Diagnostic Imaging Report ---
Indication: Altered mental status Technique: Contiguous 5 mm thick transaxial imaging of the head obtained in a Siemens Sensation [address] scanner. Soft tissue and bone windows generated. Automatic Exposure Control was utilized. Total Dose length Product (DLP): 1417.[address] Dose Index Volume (CTDIvol): 70.38 mGy Comparison: 08/04/2013 Findings: The size and configuration of the cortical sulci, basal cisterns, and ventricles are within normal limits for age. There is no mass effect, midline shift, or edema identified. There is no evidence of acute hemorrhage or abnormal intra-axial or extra-axial fluid collections. The bones and soft tissues are unremarkable. Impression: No mass effect, edema or acute bleed. The CT scanner at is accredited by the [employer] and the scans are performed using dose optimization techniques as appropriate to a performed exam including Automatic Exposure control.
[2018-03-03 17:08] VITALS: BP 113/70
[2018-03-03 18:40] VITALS: BP 107/72
[2018-03-03 19:40] VITALS: BP 107/72
--- NOTE | 2018-03-04 15:24 | Cardiology Report ---
APPROVED REPORT EKG Measurement Heart [id number] Sinus tachycardia Prolonged QT Abnormal ECG
== END 2018-03-03 19:40 | disposition short-term general hospital (02) ==
LOC: EDBD 14:32 → EMR 16:13
DX: G40.801 Other epilepsy, not intractable, with status epilepticus (principal); Z79.899 Other long term (current) drug therapy
CPT/HCPCS: 36415; 70450; 80053; 80185; 80329; 82550; 82962; 84484; 85025; 93005; 96374; 96375; 99291; J1953

== ENCOUNTER 2018-04-07 09:10 | Emergency (ER) | payer MEDICAID ==
[~2018-04-07] VITALS: Ht 165.1 cm; Wt 63.5 kg
[2018-04-07] MEDS ORDERED: Phenytoin 100mg cap ORAL ONE (09:30)
[2018-04-07] MEDS ORDERED: LORazepam Inj 2mg/ml 1ml IV ONE (09:30)
[2018-04-07 09:43] VITALS: BP 115/77
[2018-04-07 10:03] LABS: ANION GAP 21 mmol/L (5-15); BLOOD UREA NITROGEN 13 mg/dL (7-18); CALCIUM 8.6 MG/DL (8.5-10.1); CARBON DIOXIDE 14 MMOL/L (21-32); CHLORIDE 104 MMOL/L (98-107); POTASSIUM 4.4 MMOL/L (3.5-5.1); SODIUM 139 MMOL/L (136-145)
[2018-04-07 10:09] LABS: ALANINE AMINOTRANSFERASE 12 U/L (12-78); ALBUMIN 3.6 G/DL (3.4-5.0); ALBUMIN/GLOBULIN RATIO 0.6 (1.0-2.7); ALKALINE PHOSPHATASE 105 U/L (46-116); ASPARTATE AMINO TRANSFERASE 35 U/L (15-37); BILIRUBIN,TOTAL 0.3 MG/DL (0.2-1.0); HEMATOCRIT 40.2 % (37.0-47.0); MEAN CORPUSCULAR VOLUME 87 FL (80-99); PLATELET COUNT 377 K/UL (150-450); RED CELL DISTRIBUTION WIDTH 17.9 % (11.6-14.8)
[2018-04-07 10:11] LABS: WHITE BLOOD COUNT 22.8 K/UL (4.8-10.8)
--- NOTE | 2018-04-07 10:35 | Emergency Room Report ---
History of Present Illness General Chief Complaint: Seizure Source: Patient, Medical Record, EMS Present Illness HPI Patient has a history of seizures. Patient is noncompliant with medications. Patient has multiple admissions to our emergency department for seizures. Has been admitted in the past for status epilepticus. Patient states that she takes Keppra and Dilantin but is noncompliant with medications. Patient apparently had a witnessed seizure today general clonic tonic seizure and was postictal afterwards. Patient was brought here further evaluation by paramedics. Patient denies any chest pain or shortness breath does complain of vomiting. Patient also complains of a mild headache. She denies any neck stiffness. No other complaints are noted. Symptoms noted to be severe. No history of tongue biting or dysuria urinary frequency.No other modifying factors. No other associated signs and symptoms. No other complaints were noted. Allergies: Coded Allergies: No Known Allergies (Unverified , 08/05/13) Patient History Past Medical History: seizures Past Surgical History: none Pertinent Family History: none Social History: Reports: smoking Last Menstrual Period: unknown Reviewed Nursing Documentation: PMH: Agreed; PSxH: Agreed Nursing Documentation-PMH Past Medical History: No History, Except For Hx Cardiac Problems: No Hx Cancer: No Hx Gastrointestinal Problems: No Hx Neurological Problems: No - SUBSTANCE ABUSE Hx Seizures: Yes Review of Systems All Other Systems: negative except mentioned in HPI Physical Exam Vital Signs Date Time Temp Pulse Resp B/P (MAP) Pulse Ox O2 Delivery O2 Flow Rate FiO2 04/07/18 09:10 98.2 100 18 110/66 97 Room Air Sp02 EP Interpretation: reviewed, normal General Appearance: lethargic Head: normocephalic, atraumatic Eyes: bilateral eye normal inspection ENT: normal ENT inspection, hearing grossly normal, dry mucus membranes Neck: normal inspection, full range of motion, supple, no bony tend Respiratory: normal inspection, lungs clear, normal breath sounds, no respiratory distress, no retraction, no wheezing Cardiovascular #1: regular rate, rhythm, no edema Gastrointestinal: normal inspection, normal bowel sounds, non tender, soft, no guarding, no hernia Genitourinary: no CVA tenderness Musculoskeletal: normal inspection, back normal, normal range of motion Neurologic: normal inspection, responsive, other - Confused, sleepy but moving all extremities, nonfocal exam Psychiatric: depressed affect, anxious Skin: normal inspection, normal color, no rash Medical Decision Making Diagnostic Impression: Primary Impression: Status epilepticus Additional Impression: Leukocytosis ER Course Patient has history of seizures. Patient is noncompliant with medications. Differential diagnoses include recurrent seizures, subtherapeutic medication levels, medication noncompliance is name a few.Given the severity of the patient 's presentation I felt this is a highly complex patient. This patient required extensive workup. Patient's laboratory workup shows an elevated white blood cell count likely secondary stress reaction. Review medical records show the patient has had elevated white blood cell count in the past. Patient was given Ativan and apparently sedated has no further episodes seizures. However given the patient is noncompliant with a history of status epilepticus and appears weak and postictal I feel that it would be best to admit the patient for monitoring. Case was discussed with transferring physician patient will be transferred further treatment. Labs Test 04/07/18 09:44 04/07/18 10:45 White Blood Count 22.8 K/UL (4.8-10.8) Red Blood Count 4.60 M/UL (4.20-5.40) Hemoglobin 13.0 G/DL (12.0-16.0) Hematocrit 40.2 % (37.0-47.0) Mean Corpuscular Volume 87 FL (80-99) Mean Corpuscular Hemoglobin 28.2 PG (27.0-31.0) Mean Corpuscular Hemoglobin Concent 32.2 G/DL (32.0-36.0) Red Cell Distribution Width 17.9 % (11.6-14.8) Platelet Count 377 K/UL (150-450) Mean Platelet Volume 6.1 FL (6.5-10.1) Neutrophils (%) (Auto) % (45.0-75.0) Lymphocytes (%) (Auto) % (20.0-45.0) Monocytes (%) (Auto) % (1.0-10.0) Eosinophils (%) (Auto) % (0.0-3.0) Basophils (%) (Auto) % (0.0-2.0) Differential Total Cells Counted 100 Neutrophils % (Manual) 78 % (45-75) Lymphocytes % (Manual) 17 % (20-45) Monocytes % (Manual) 5 % (1-10) Eosinophils % (Manual) 0 % (0-3) Basophils % (Manual) 0 % (0-2) Band Neutrophils 0 % (0-8) Platelet Estimate Adequate Platelet Morphology Normal Red Blood Cell Morphology Normal Sodium Level 139 MMOL/L (136-145) Potassium Level 4.4 MMOL/L (3.5-5.1) Chloride Level 104 MMOL/L (98-107) Carbon Dioxide Level 14 MMOL/L (21-32) Anion Gap 21 mmol/L (5-15) Blood Urea Nitrogen 13 mg/dL (7-18) Creatinine 1.0 MG/DL (0.55-1.30) Estimat Glomerular Filtration Rate > 60 mL/min (>60) Glucose Level 131 MG/DL (74-106) Calcium Level 8.6 MG/DL (8.5-10.1) Total Bilirubin 0.3 MG/DL (0.2-1.0) Aspartate Amino Transf (AST/SGOT) 35 U/L (15-37) Alanine Aminotransferase (ALT/SGPT) 12 U/L (12-78) Alkaline Phosphatase 105 U/L (46-116) Total Protein 9.2 G/DL (6.4-8.2) Albumin 3.6 G/DL (3.4-5.0) Globulin 5.6 g/dL Albumin/Globulin Ratio 0.6 (1.0-2.7) Phenytoin (Dilantin) Level < 0.5 ug/mL (10-20) Urine Color Pale yellow Urine Appearance Slightly cloudy Urine pH 5 (4.5-8.0) Urine Specific [employer] 1.025 (1.005-1.035) Urine Protein 2+ (NEGATIVE) Urine Glucose (UA) Negative (NEGATIVE) Urine Ketones 3+ (NEGATIVE) Urine Blood 2+ (NEGATIVE) Urine Nitrite Negative (NEGATIVE) Urine Bilirubin Negative (NEGATIVE) Urine Urobilinogen Normal MG/DL (0.0-1.0) Urine Leukocyte Esterase Negative (NEGATIVE) Urine RBC 0-2 /HPF (0 - 2) Urine WBC 0-2 /HPF (0 - 2) Urine Squamous Epithelial Cells Occasional /LPF Urine Uric Acid Crystals Few /LPF (NONE) Urine Bacteria Occasional /HPF (NONE) Urine HCG, Qualitative Negative (NEGATIVE) Urine Opiates Screen Negative (NEGATIVE) Urine Barbiturates Screen Negative (NEGATIVE) Phencyclidine (PCP) Screen Negative (NEGATIVE) Urine Amphetamines Screen Negative (NEGATIVE) Urine Benzodiazepines Screen Negative (NEGATIVE) Urine Cocaine Screen Negative (NEGATIVE) Urine Marijuana (THC) Screen Positive (NEGATIVE) EKG Diagnostic Results Rate: normal Rhythm: NSR ST Segments: no acute changes Rhythm Strip Diag. Results EP Interpretation: yes Rate: 92 Rhythm: NSR, no PVC's, no ectopy Last Vital Signs Date Time Temp Pulse Resp B/P (MAP) Pulse Ox O2 Delivery O2 Flow Rate FiO2 04/07/18 09:43 98.2 94 18 115/77 98 Room Air Status: improved Disposition: ADMITTED INPATIENT Condition: Serious Referrals: [facility],REFERRING (PCP) Tyson Cabello MD Apr 07, 2018 10:35
[2018-04-07 11:00] LABS: APPEARANCE,URINE SLIGHTLY CLOUDY; BILIRUBIN, URINE NEGATIVE (NEGATIVE); COLOR,URINE PALE YELLOW; GLUCOSE, URINE (UA) NEGATIVE (NEGATIVE); KETONES,URINE 3+ (NEGATIVE); LEUKOCYTE ESTERASE ,URINE NEGATIVE (NEGATIVE); NITRITE,URINE NEGATIVE (NEGATIVE); PH,URINE 5 (4.5-8.0); PROTEIN,URINE 2+ (NEGATIVE); UROBILINOGEN,URINE NORMAL MG/DL (0.0-1.0)
[2018-04-07 11:08] VITALS: BP 115/77
[2018-04-07 12:28] VITALS: BP 100/62
[2018-04-07 13:32] VITALS: BP 105/77
[2018-04-07 13:33] VITALS: BP 105/77
--- NOTE | 2018-04-08 17:03 | Cardiology Report ---
APPROVED REPORT EKG Measurement Heart [id number] Normal sinus rhythm Possible Left atrial enlargement Borderline ECG
== END 2018-04-07 13:33 | disposition other institution (70) ==
LOC: EDBD 09:10 → EMR 09:19
DX: G40.901 Epilepsy, unspecified, not intractable, with status epilepticus (principal); D72.829 Elevated white blood cell count, unspecified
CPT/HCPCS: 36415; 80053; 80185; 80299; 80307; 81003; 81025; 82962; 85007; 85025; 93005; 96374; 96375; 99284; J2405

== ENCOUNTER 2018-07-23 18:12 | Emergency (ER) | payer MEDICAID ==
[~2018-07-23] VITALS: Ht 157.5 cm; Wt 54.4 kg
[2018-07-23 18:40] VITALS: BP 102/67
--- NOTE | 2018-07-23 18:40 | NUR ---
ED Nurse Note: pt walked in c/o godwin earache for couple of days, denies injuries or discharge, denies hearing problem. noted earwax godwin ears but no drainage or sx injures. will cont monitor.
--- NOTE | 2018-07-23 19:24 | Emergency Room Report ---
History of Present Illness General Chief Complaint: Earache Source: Patient Present Illness HPI 37 year old female presents to the emergency department complaining of bilateral ear discomfort that she rates as 5 out of 10 in severity 4 days. Patient reports that she has muffled hearing. Patient denies fevers or chills, discharge from the ear, trauma to the ear or tenderness to the external portions of the ear. Patient also reports having an abscess on the right eyebrow times one week she denies erythema, warmth or involvement of the eyelid or eye itself. Denies visual changes. Pt. reports pressure in the ears bilaterally, denies rhinorrhea. or ST. Allergies: Coded Allergies: No Known Allergies (Unverified , 08/05/13) Patient History Past Medical History: see triage record Past Surgical History: none Pertinent Family History: none Now: No Reviewed Nursing Documentation: PMH: Agreed; PSxH: Agreed Nursing Documentation-PMH Past Medical History: No History, Except For Hx Cardiac Problems: No Hx Cancer: No Hx Gastrointestinal Problems: No Hx Neurological Problems: No - SUBSTANCE ABUSE Hx Seizures: Yes Review of Systems All Other Systems: negative except mentioned in HPI Physical Exam Vital Signs Date Time Temp Pulse Resp B/P (MAP) Pulse Ox O2 Delivery O2 Flow Rate FiO2 07/23/18 18:23 98.1 73 17 98/67 99 Room Air Sp02 EP Interpretation: reviewed, normal General Appearance: no apparent distress, alert, GCS 15, non-toxic Head: normocephalic, atraumatic, other - non inflammed palpable 0.5cm cyst that is well circumscribed and freely mobile just below the right eyebrow, no erythema, no fluctuance, no warmth. Eyes: bilateral eye normal inspection, bilateral eye PERRL, bilateral eye EOMI ENT: hearing grossly normal, normal pharynx, normal voice, TMs + canals normal - some bulging to membranes bilaterally with normal color, no fluids noted, no rupture, clear canal, no external ear tenderness Neck: full range of motion Respiratory: lungs clear, normal breath sounds, speaking full sentences Cardiovascular #1: regular rate, rhythm Musculoskeletal: back normal, gait/station normal, normal range of motion, non- tender Neurologic: alert, oriented x3, responsive, motor strength/tone normal, sensory intact, speech normal, grossly normal Psychiatric: judgement/insight normal Skin: normal color, no rash, warm/dry, well hydrated Lymphatic: no adenopathy Procedures Incision and Drainage Incision and Drainage : Consent: Verbal Site: right eyebrow Blade Size: 22G needle I & D Procedure: betadine prep Wound Location: face - in the right eyebrow Wound's Depth, Shape: superficial Wound Length (cm): 0 Wound Explored: unable to aspirate anything. no purulence some mild straw colored fluid Sling Applied?: No Patient Tolerated: Well Complications: None Medical Decision Making PA Attestation Dr. chávez is my supervising Physician whom patient management has been discussed with. Diagnostic Impression: Primary Impression: Cyst of face Additional Impression: Pressure-related ear pain Qualified Codes: T70.0XXA - Otitic barotrauma, initial encounter ER Course 37 year old female presents to the emergency department complaining of bilateral ear discomfort that she rates as 5 out of 10 in severity 4 days. Patient reports that she has muffled hearing. Patient denies fevers or chills, discharge from the ear, trauma to the ear or tenderness to the external portions of the ear. Patient also reports having an abscess on the right eyebrow times one week she denies erythema, warmth or involvement of the eyelid or eye itself. Denies visual changes. Pt. reports pressure in the ears bilaterally, denies rhinorrhea. or ST. Ddx considered but are not limited to cellulitis, abscess, cystic acne, necrotizing fasciitis, insect bite, stye, cyst, OE/OM, just to name a few Vital signs: are WNL, pt. is afebrile H&PE are most consistent with ST cyst of the right eyebrow, and sinus congestion ORDERS: none required at this time, the diagnosis is clinical ED INTERVENTIONS: - no purulent fluid aspirated. -I do not identify an emergent condition at this time. With current presentation , pt. is stable for close outpatient follow up and conservative treatment. D/ w pt. to return promptly to ED with worsening or new symptoms.- Pt. verbalizes' understanding and agreement with proposed treatment plan.proposed treatment plan. Discussed with patient that the cyst on her right eye most likely will require surgical excision and that she should follow up with ophthalmology. DISCHARGE: At this time pt. is stable for d/c to home. Will provide printed patient care instructions, and any necessary prescriptions. Care plan and follow up instructions have been discussed with the patient prior to discharge. Last Vital Signs Date Time Temp Pulse Resp B/P (MAP) Pulse Ox O2 Delivery O2 Flow Rate FiO2 07/23/18 18:40 98.1 78 17 102/67 99 Room Air Status: improved Disposition: HOME, SELF-CARE Condition: Stable Scripts Cetirizine Hcl* (ZYRTEC*) 10 Mg Tablet 10 MG ORAL DAILY, #30 TAB 0 Refills Prov: Yodit Villatoro 07/23/18 Oxymetazoline HCl (Afrin) 15 Ml [place] 2 SPRAY NASAL TWICE A DAY, #15 SPRAY DO NOT USE FOR MORE THAN 3 CONSECUTIVE DAYS. Prov: Yodit Villatoro 07/23/18 Patient Instructions: Earache, Epidermal Cyst, [id number] Additional Instructions: Take medications as directed. Follow up with a Primary Care Provider in 3-5 days, even if your symptoms have resolved. DERMATOLOGY for Cyst Removal --Please review list of primary care clinics, if you do not already have a primary care provider Return sooner to ED if new symptoms occur, or current symptoms become worse. - Please note that this Emergency Department Report was dictated using [employer] melter technology software, occasionally this can lead to erroneous entry secondary to interpretation by the dictation equipment. Yodit Villatoro Jul 23, 2018 19:24
[2018-07-23] MEDS ORDERED: ZYRTEC10 MG ORAL (19:26)
[2018-07-23] MEDS ORDERED: AFRIN NASAL SPR30 ML NASAL (19:26)
--- NOTE | 2018-07-23 19:55 | NUR ---
ED Nurse Note: pt cleared to be d/c per ER provider, pt discharge/aftercare instruction provided w/ prescription, pt education done via discussion and handout, pt advised to follow up with pcp or return to ed if sx worsen or new sx develop, pt verbalized understanding and agrees with plan. wristband removed, vss, airway intact, resp even and unlabored, all belongings left with pt, ambulatory w/ steady gait.
== END 2018-07-23 19:55 | disposition home or self-care (01) ==
LOC: EMR 19:45
DX: L72.8 Other follicular cysts of the skin and subcutaneous tissue (principal); H92.03 Otalgia, bilateral
CPT/HCPCS: 10060; 99283; Z7502

== ENCOUNTER 2019-01-18 17:18 | Emergency (ER) | payer SELFPAY ==
[~2019-01-18] VITALS: Ht 167.6 cm; Wt 63.5 kg
[~2019-01-18 17:18] MED LIST changes: +AFRIN NASAL SPR30 ML NASAL; +ZYRTEC10 MG ORAL
[2019-01-18] MEDS ORDERED: FOLIC ACID0.4 MG ORAL (17:20)
[2019-01-18] MEDS ORDERED: LORazepam Inj 2mg/ml 1ml IV ONE (17:30)
[2019-01-18] MEDS ORDERED: Phenytoin 500 MG in NS 110 ML IV ONE (17:30)
[2019-01-18] MEDS ORDERED: Ketorolac 30mg Inj IV ONE (17:30)
--- NOTE | 2019-01-18 17:30 | NUR ---
ED Nurse Note:pt. was BIBA from home s/p seizure while in bed no head injury, pt. is A/Ox4 up on arrival, blood sent to labs and meds and IV fluids given, placed on the monitor with rails padded
--- NOTE | 2019-01-18 17:33 | Emergency Room Report ---
History of Present Illness General Chief Complaint: Seizure Source: Patient, EMS Present Illness HPI Patient presents after having 2 witnessed tonic-clonic seizures. He did the tongue. He complained about headache right now. She ran of her Dilantin 3 days ago. Has been drinking alcohol and does not remember the last time she had a drink. Headache is 10/10 at this time constant and diffuse. She also bit her tongue. She was not incontinent. She does not believe she is at this time. The patient has been seen here in the past for uncontrolled seizures and status epilepticus. This was in March 2018. She was transferred. Prior to that she was admitted in 2015. She has always tested subtherapeutic for her Dilantin. Tox screen is always been negative except for elevated alcohol in 2017. No fevers, chills, sore throat, chest pain, palpitations, nausea, vomiting, diarrhea, dysuria, abdominal pain, shortness of breath, joint pain, rashes, depression, anxiety, visual changes. Allergies: Coded Allergies: No Known Allergies (Unverified , 08/05/13) Patient History Past Medical History: see triage record Social History: Reports: smoking, alcohol use, drug use - THC Social History Narrative On [place] Reviewed Nursing Documentation: PMH: Agreed; PSxH: Agreed Nursing Documentation-PMH Past Medical History: No History, Except For Hx Cardiac Problems: No Hx Cancer: No Hx Gastrointestinal Problems: No Hx Neurological Problems: No - SUBSTANCE ABUSE Hx Seizures: Yes Review of Systems All Other Systems: negative except mentioned in HPI Physical Exam Vital Signs Date Time Temp Pulse Resp B/P (MAP) Pulse Ox O2 Delivery O2 Flow Rate FiO2 01/18/19 17:15 97.9 90 18 110/77 (88) 98 Room Air Sp02 EP Interpretation: reviewed, normal General Appearance: well appearing, no apparent distress, alert, non-toxic, other - Depressed Head: normocephalic Eyes: bilateral eye normal inspection, bilateral eye PERRL, bilateral eye EOMI ENT: moist mucus membranes - Tongue trauma Neck: supple, no bony tend Respiratory: lungs clear, normal breath sounds Cardiovascular #1: regular rate, rhythm Cardiovascular #2: 2+ radial (R) Gastrointestinal: normal inspection, normal bowel sounds, non tender, non- distended, scaphoid Genitourinary: no CVA tenderness Musculoskeletal: back normal, normal range of motion Neurologic: alert, basketballs and footballs reverser III-XII nml as tested, motor strength/tone normal, DTRs symmetric, sensory intact, cerebellar normal, speech normal, oriented - X2 Psychiatric: depressed affect Skin: no rash Medical Decision Making Diagnostic Impression: Primary Impression: Seizure Additional Impression: Noncompliance ER Course Patient presents post 2 seizures and history of noncompliance. Differential includes epilepsy with breakthrough, noncompliance, electrolyte imbalance amongst others. She has a nonfocal neurologic exam at this time and imaging is not indicated. She also states that she drinks alcohol and this could be related to withdrawal. Evaluation with labs. The patient will receive Ativan and Dilantin. Patient will be given a dose of Toradol for her headache. EKG no injury. Labs significant for negative alcohol and subtherapeutic Dilantin. The patient was transiently hypotensive and received a second liter bolus. Blood pressure remained stable after this. Patient's mentation improved. Prior to discharge she states that she takes Keppra along with Dilantin. A prescription for Keppra and Dilantin were to the patient. Discussion with the patient regarding the need for follow-up and medical compliance and avoidance of alcohol. Patient stable for outpatient observation and treatment. Laboratory Tests Test 01/18/19 17:35 01/18/19 20:24 White Blood Count 11.2 K/UL (4.8-10.8) H Red Blood Count 4.06 M/UL (4.20-5.40) L Hemoglobin 11.5 G/DL (12.0-16.0) L Hematocrit 35.7 % (37.0-47.0) L Mean Corpuscular Volume 88 FL (80-99) Mean Corpuscular Hemoglobin 28.4 PG (27.0-31.0) Mean Corpuscular Hemoglobin Concent 32.3 G/DL (32.0-36.0) Red Cell Distribution Width 16.8 % (11.6-14.8) H Platelet Count 303 K/UL (150-450) Mean Platelet Volume 5.5 FL (6.5-10.1) L Neutrophils (%) (Auto) 65.9 % (45.0-75.0) Lymphocytes (%) (Auto) 25.8 % (20.0-45.0) Monocytes (%) (Auto) 5.5 % (1.0-10.0) Eosinophils (%) (Auto) 1.1 % (0.0-3.0) Basophils (%) (Auto) 1.7 % (0.0-2.0) Sodium Level 142 MMOL/L (136-145) Potassium Level 3.6 MMOL/L (3.5-5.1) Chloride Level 104 MMOL/L (98-107) Carbon Dioxide Level 23 MMOL/L (21-32) Anion Gap 15 mmol/L (5-15) Blood Urea Nitrogen 8 mg/dL (7-18) Creatinine 0.9 MG/DL (0.55-1.30) Estimate Glomerular Filtration Rate > 60 mL/min (>60) Glucose Level 90 MG/DL (74-106) Calcium Level 8.7 MG/DL (8.5-10.1) Total Bilirubin 0.4 MG/DL (0.2-1.0) Aspartate Amino Transferase (AST) 23 U/L (15-37) Alanine Aminotransferase (ALT) 13 U/L (12-78) Alkaline Phosphatase 80 U/L (46-116) Total Creatine Kinase 141 U/L (26-308) Total Protein 7.8 G/DL (6.4-8.2) Albumin 3.4 G/DL (3.4-5.0) Globulin 4.4 g/dL Albumin/Globulin Ratio 0.8 (1.0-2.7) L Phenytoin (Dilantin) Level < 0.5 ug/mL (10-20) L Serum Alcohol < 3 mg/dL Urine Color Pale yellow Urine Appearance Clear Urine pH 5 (4.5-8.0) Urine Specific [place] 1.020 (1.005-1.035) Urine Protein 2+ (NEGATIVE) H Urine Glucose (UA) Negative (NEGATIVE) Urine Ketones 1+ (NEGATIVE) H Urine Blood Negative (NEGATIVE) Urine Nitrite Negative (NEGATIVE) Urine Bilirubin Negative (NEGATIVE) Urine Urobilinogen Normal MG/DL (0.0-1.0) Urine Leukocyte Esterase 1+ (NEGATIVE) H Urine RBC 0-2 /HPF (0 - 2) Urine WBC 2-4 /HPF (0 - 2) Urine Squamous Epithelial Cells Few /LPF (NONE/OCC) Urine Bacteria Few /HPF (NONE) Urine HCG, Qualitative Negative (NEGATIVE) Urine Opiates Screen Negative (NEGATIVE) Urine Barbiturates Screen Negative (NEGATIVE) Phencyclidine (PCP) Screen Negative (NEGATIVE) Urine Amphetamines Screen Negative (NEGATIVE) Urine Benzodiazepines Screen Negative (NEGATIVE) Urine Cocaine Screen Negative (NEGATIVE) Urine Marijuana (THC) Screen Positive (NEGATIVE) H EKG Diagnostic Results Rate: normal Rhythm: NSR ST Segments: no acute changes Rhythm Strip Diag. Results EP Interpretation: yes Rhythm: NSR, no PVC's, no ectopy Last Vital Signs Date Time Temp Pulse Resp B/P (MAP) Pulse Ox O2 Delivery O2 Flow Rate FiO2 01/18/19 20:56 97.9 93 18 93/75 98 Room Air Status: improved Disposition: HOME, SELF-CARE Condition: Improved Scripts Levetiracetam (Keppra) 250 Mg Tablet 500 MG ORAL EVERY 12 HOURS, #60 TAB 0 Refills Prov: Santy Biggs MD 01/18/19 Phenytoin Sodium Extended* (DILANTIN*) 100 Mg Capsule 300 MG ORAL BEDTIME, #90 CAP Prov: Santy Biggs MD 01/18/19 Santy Biggs MD Jan 18, 2019 17:33
[2019-01-18 18:08] LABS: BASOPHILS % (AUTO) 1.7 % (0.0-2.0); EOSINOPHILS % (AUTO) 1.1 % (0.0-3.0); HEMATOCRIT 35.7 % (37.0-47.0); HEMOGLOBIN 11.5 G/DL (12.0-16.0); LYMPHOCYTES % (AUTO) 25.8 % (20.0-45.0); MEAN CORPUSCULAR VOLUME 88 FL (80-99); MONOCYTES % (AUTO) 5.5 % (1.0-10.0); NEUTROPHILS % (AUTO) 65.9 % (45.0-75.0); PLATELET COUNT 303 K/UL (150-450); RED BLOOD COUNT 4.06 M/UL (4.20-5.40); RED CELL DISTRIBUTION WIDTH 16.8 % (11.6-14.8); WHITE BLOOD COUNT 11.2 K/UL (4.8-10.8)
[2019-01-18 18:14] LABS: ANION GAP 15 mmol/L (5-15); BLOOD UREA NITROGEN 8 mg/dL (7-18); CALCIUM 8.7 MG/DL (8.5-10.1); CARBON DIOXIDE 23 MMOL/L (21-32); CHLORIDE 104 MMOL/L (98-107); CREATININE 0.9 MG/DL (0.55-1.30); POTASSIUM 3.6 MMOL/L (3.5-5.1); SODIUM 142 MMOL/L (136-145)
[2019-01-18 18:19] LABS: ALANINE AMINOTRANSFERASE 13 U/L (12-78); ALBUMIN 3.4 G/DL (3.4-5.0); ALBUMIN/GLOBULIN RATIO 0.8 (1.0-2.7); ALKALINE PHOSPHATASE 80 U/L (46-116); ASPARTATE AMINO TRANSFERASE 23 U/L (15-37); BILIRUBIN,TOTAL 0.4 MG/DL (0.2-1.0); CREATINE KINASE 141 U/L (26-308)
[2019-01-18 18:38] VITALS: BP 93/75
--- NOTE | 2019-01-18 19:00 | NUR ---
ED Nurse Note:pt. is asleep BP 85/54, MD notified and second bolus is given
--- NOTE | 2019-01-18 19:15 | NUR ---
ED Nurse Note: Patient sleeping soundly no s/s of acute distress. vital signs stable. Blood pressure is below 90/60 but patient if in the right lateral position. Will continue to monitor.
[2019-01-18] MEDS ORDERED: DILANTIN100 MG ORAL (19:48)
[2019-01-18] MEDS ORDERED: Phenytoin 100mg cap ORAL ONE (20:30)
--- NOTE | 2019-01-18 20:40 | NUR ---
ED Nurse Note: Patient is cleared for discharge by ERMD, patient is ambulatory with steady gait, no s/s of acute distress. Patient will be provided with a taxi voucher for transport home. Patient is A&Ox4, Id band removed, IV removed. Patient departed with wall belongings.
[2019-01-18] MEDS ORDERED: KEPPRA500 MG ORAL (20:48)
[2019-01-18 20:56] VITALS: BP 93/75
[2019-01-18 21:12] LABS: APPEARANCE,URINE CLEAR; BILIRUBIN, URINE NEGATIVE (NEGATIVE); COLOR,URINE PALE YELLOW; GLUCOSE, URINE (UA) NEGATIVE (NEGATIVE); KETONES,URINE 1+ (NEGATIVE); LEUKOCYTE ESTERASE ,URINE 1+ (NEGATIVE); NITRITE,URINE NEGATIVE (NEGATIVE); PH,URINE 5 (4.5-8.0); PROTEIN,URINE 2+ (NEGATIVE); UROBILINOGEN,URINE NORMAL MG/DL (0.0-1.0)
--- NOTE | 2019-01-19 11:17 | Cardiology Report ---
APPROVED REPORT EKG Measurement Heart [id number] Normal sinus rhythm Normal ECG
== END 2019-01-18 20:56 | disposition home or self-care (01) ==
LOC: EDBD 17:18 → EMR 17:37
DX: G40.409 Other generalized epilepsy and epileptic syndromes, not intractable, without status epilepticus (principal); Z91.19 Patient's noncompliance with other medical treatment and regimen; R51 Headache; F17.200 Nicotine dependence, unspecified, uncomplicated; F12.10 Cannabis abuse, uncomplicated; I95.9 Hypotension, unspecified
CPT/HCPCS: 36415; 80053; 80185; 80307; 81003; 81025; 82550; 85025; 93005; 96361; 96365; 96375; 99284; G0480; J1165; J1885; 80329

== ENCOUNTER 2019-01-19 01:14 | Emergency (ER) | payer SELFPAY ==
[~2019-01-19] VITALS: Ht 157.5 cm; Wt 54.4 kg
[~2019-01-19 01:14] MED LIST changes: +FOLIC ACID0.4 MG ORAL
[2019-01-19 01:19] VITALS: BP 143/82
--- NOTE | 2019-01-19 01:19 | NUR ---
ED Nurse Note: Patient BIBA for the second time tonight due to seizures, will tend to orders and continue to monitor. Patient is accompanied by friend upon arrival.
[2019-01-19] MEDS ORDERED: levETIRAcetam 1,000mg/NS100ml 100 ML IVPB ONE (01:30)
--- NOTE | 2019-01-19 01:30 | NUR ---
ED Nurse Note: Patient did not tolerate first two attempts to IV start well. Patient did not move the thid time and stick was successful. Will continue to monitor.
--- NOTE | 2019-01-19 02:11 | Emergency Room Report ---
History of Present Illness General Chief Complaint: Seizure Source: Patient Present Illness HPI Is a 38-year-old female with a history of seizure. She is supposed to be on Keppra and Dilantin. She been out of it for at least 2 weeks. She had a seizure and seen here earlier by Dr. Biggs. Lab work was unremarkable. Dilantin was loaded. No Keppra given. She went home and had another seizure. She was brought in by EMS with a chief plane of seizure. Tonic-clonic in there. No incontinence of bowel or urine. No oral trauma. Lasted for less than a minute. Mild postictal state. No postictal. Back to baseline by the time she got here. Allergies: Coded Allergies: No Known Allergies (Unverified , 08/05/13) Patient History Past Medical History: see triage record, old chart reviewed, seizures Past Surgical History: other Pertinent Family History: none Social History: Denies: smoking Now: No Immunizations: other Reviewed Nursing Documentation: PMH: Agreed; PSxH: Agreed Nursing Documentation-PMH Past Medical History: No History, Except For Hx Cardiac Problems: No Hx Cancer: No Hx Gastrointestinal Problems: No Hx Neurological Problems: No - SUBSTANCE ABUSE Hx Seizures: Yes Review of Systems Eye: Denies: eye pain, blurred vision ENT: Denies: ear pain, nose congestion, throat swelling Respiratory: Denies: cough, shortness of breath Cardiovascular: Denies: chest pain, palpitations Gastrointestinal: Denies: abdominal pain, diarrhea, nausea, vomiting Musculoskeletal: Denies: back pain, joint pain Skin: Denies: rash Neurological: Denies: headache, numbness Endocrine: Denies: increased thirst, increased urine Hematologic/Lymphatic: Denies: easy bruising All Other Systems: negative except mentioned in HPI Physical Exam Vital Signs Date Time Temp Pulse Resp B/P (MAP) Pulse Ox O2 Delivery O2 Flow Rate FiO2 01/19/19 01:17 98.4 82 18 143/82 (102) 98 Room Air Vitals normal Sp02 EP Interpretation: reviewed, normal General Appearance: well appearing, no apparent distress, alert Head: normocephalic, atraumatic Eyes: bilateral eye PERRL, bilateral eye EOMI ENT: hearing grossly normal, normal pharynx Neck: full range of motion, supple, no meningismus Respiratory: chest non-tender, lungs clear, normal breath sounds Cardiovascular #1: regular rate, rhythm, no murmur Gastrointestinal: normal bowel sounds, non tender, no mass, no organomegaly, no bruit, non-distended Musculoskeletal: back normal, gait/station normal, normal range of motion Psychiatric: mood/affect normal Medical Decision Making Diagnostic Impression: Primary Impression: Epileptic seizure, generalized ER Course Seizure secondary to noncompliance. She has prescription for Keppra and Dilantin already. Keppra loaded here. Will discharge home. No trauma to warrant CT head. Last Vital Signs Date Time Temp Pulse Resp B/P (MAP) Pulse Ox O2 Delivery O2 Flow Rate FiO2 01/19/19 01:19 82 18 Room Air 01/19/19 01:19 98.4 143/82 98 Status: improved Disposition: HOME, SELF-CARE Condition: Stable Patient Instructions: Seizure, Adult Additional Instructions: Take your seizure medication. Follow-up with your doctor in 7 days. Abstain from alcohol and drugs. Do not drive or operate heavy machinery. Return if worse. Deion Mcnair MD Jan 19, 2019 02:11
--- NOTE | 2019-01-19 02:16 | NUR ---
ED Nurse Note: Patient cleared for discharge pending discussion of transportation arrangements with friend when he returns.
--- NOTE | 2019-01-19 02:40 | NUR ---
ED Nurse Note: Patient cleared for discharge, no s/s of acute distress. PAtient verbalized understanding of discharge instructions and provided a voucher for a cab home. Patient IV removed, ID band removed. Patient discharged with all belongings.
[2019-01-19 02:45] VITALS: BP 143/82
== END 2019-01-19 02:45 | disposition home or self-care (01) ==
LOC: EDUNIT# 01:14 → EDBD 01:14 → EMR 01:28
DX: G40.409 Other generalized epilepsy and epileptic syndromes, not intractable, without status epilepticus (principal); Z91.19 Patient's noncompliance with other medical treatment and regimen
CPT/HCPCS: 96374; 99283; J1953

== ENCOUNTER 2019-01-21 19:41 | Emergency (ER) | payer SELFPAY ==
[~2019-01-21] VITALS: Ht 157.5 cm; Wt 54.4 kg
--- NOTE | 2019-01-21 20:01 | NUR ---
ED Nurse Note: Patient presents with history of seizures in need of a new prescription for keppra, patient lost her last one after she was seen for seizures recently.
[2019-01-21 20:02] VITALS: BP 127/87
--- NOTE | 2019-01-21 20:03 | NUR ---
ED Nurse Note: Patient currently providing urine sample.
--- NOTE | 2019-01-21 20:23 | Emergency Room Report ---
History of Present Illness General Chief Complaint: Medication Refill Source: Patient Present Illness HPI 38-year-old female with history of grand mal seizures and epilepsy who was here a few days ago for 2 seizures [id number] here requesting medication refill as she lost her medication prescription that was given to her 2 days ago. Patient has some leftover Dilantin however has not taken her Keppra for 2 days. I gave her a dose of Keppra here. Patient denies any alcohol intake for the past 2 days. Denies urinary bowel incontinence. Denies chest pain, head trauma, loss of consciousness, dizziness and syncope. Denies palpitation, no other associated symptoms. Patient was seen by Dr. Biggs on 18 January and given folic acid, Keppra, Dilantin. Allergies: Coded Allergies: No Known Allergies (Unverified , 08/05/13) Patient History Past Medical History: see triage record Past Surgical History: none Pertinent Family History: none Last Menstrual Period: 12/30/18 Now: No Immunizations: UTD Reviewed Nursing Documentation: PMH: Agreed; PSxH: Agreed Nursing Documentation-PMH Hx Cardiac Problems: No Hx Cancer: No Hx Gastrointestinal Problems: No Hx Neurological Problems: No - SUBSTANCE ABUSE Hx Seizures: Yes Review of Systems All Other Systems: negative except mentioned in HPI Physical Exam Vital Signs Date Time Temp Pulse Resp B/P (MAP) Pulse Ox O2 Delivery O2 Flow Rate FiO2 01/21/19 19:56 97.9 80 20 127/87 (100) 100 Room Air Sp02 EP Interpretation: reviewed, normal General Appearance: no apparent distress, alert, GCS 15, non-toxic Head: normocephalic, atraumatic Eyes: bilateral eye normal inspection, bilateral eye PERRL ENT: hearing grossly normal, normal pharynx, no angioedema, normal voice Neck: full range of motion, supple, supple/symm/no masses Respiratory: chest non-tender, lungs clear, normal breath sounds, no rhonchi, speaking full sentences Cardiovascular #1: regular rate, rhythm, no edema Gastrointestinal: normal bowel sounds, non tender, soft, non-distended, no guarding, no rebound Genitourinary: normal inspection, no CVA tenderness Musculoskeletal: back normal, gait/station normal, normal range of motion, non- tender Neurologic: alert, oriented x3, responsive, motor strength/tone normal, sensory intact, speech normal Psychiatric: judgement/insight normal, memory normal, mood/affect normal, no suicidal/homicidal ideation Skin: no rash Lymphatic: normal inspection Medical Decision Making PA Attestation All my diagnosis and treatment plans were reviewed ad discussed with my supervising physician Dr. Saenz Diagnostic Impression: Primary Impression: Encounter for medication refill Additional Impression: Seizure disorder ER Course 38-year-old female with history of grand mal seizures and epilepsy who was here a few days ago for 2 seizures [id number] here requesting medication refill as she lost her medication prescription that was given to her 2 days ago. Patient has some leftover Dilantin however has not taken her Keppra for 2 days. I gave her a dose of Keppra here. Patient denies any alcohol intake for the past 2 days. Denies urinary bowel incontinence. Denies chest pain, head trauma, loss of consciousness, dizziness and syncope. Denies palpitation, no other associated symptoms. Patient was seen by Dr. Biggs on 18 January and given folic acid, Keppra, Dilantin. Ddx considered but are not limited to: Seizure disorder, epilepsy, uncontrolled seizure disorder Vital signs: are WNL, pt. is afebrile H&PE are most consistent with: Controlled seizure disorder ORDERS: Dilantin, Keppra, folic acid ED INTERVENTIONS: Keppra DISCHARGE: At this time pt. is stable for d/c to home. Will provide printed patient care instructions, and any necessary prescriptions. Care plan and follow up instructions have been discussed with the patient prior to discharge. No head CT is negative patient was here 2 days ago and reports he has not had any seizures since. Patient to follow-up with a neurologist take medication as directed. If worsening symptoms return to the emergency room. Avoid drinking alcohol as it triggers her seizures. Last Vital Signs Date Time Temp Pulse Resp B/P (MAP) Pulse Ox O2 Delivery O2 Flow Rate FiO2 01/21/19 20:02 97.9 86 20 127/87 100 Room Air Disposition: HOME, SELF-CARE Condition: Stable Scripts Folic Acid (FOLIC ACID) 0.4 Mg Tablet 0.4 MG ORAL DAILY, #30 TAB Prov: Malick Abdul 01/21/19 Levetiracetam (KEPPRA) 500 Mg Tablet 500 MG ORAL EVERY 12 HOURS for 30 Days, #60 TAB 0 Refills Prov: Malick Abdul 01/21/19 Phenytoin Sodium Extended* (DILANTIN*) 100 Mg Capsule 300 MG ORAL BEDTIME, #90 CAP Prov: Malick Abdul 01/21/19 Patient Instructions: Medicine Refill at the Emergency Department, Seizure, Adult, [id number] Additional Instructions: Take medication as directed avoid drinking alcohol as it can trigger your seizures follow-up with a neurologist Malick Abdul Jan 21, 2019 20:23
[2019-01-21] MEDS ORDERED: KEPPRA500 M4 ORAL (20:25)
[2019-01-21] MEDS ORDERED: FOLIC ACID0.4 MG ORAL (20:25)
[2019-01-21] MEDS ORDERED: DILANTIN100 MG ORAL (20:25)
[2019-01-21 20:40] VITALS: BP 127/87
--- NOTE | 2019-01-21 20:40 | NUR ---
ED Nurse Note: Patient cleared for discharge, no s/s of acute distress nor seizure. Patient tolerated medication administration well. Patient ID band collected, patient verbalized understanding of discharge instructions. patient departed with all belongings to home via bus.
== END 2019-01-21 20:40 | disposition home or self-care (01) ==
LOC: EMR 20:23
DX: Z76.0 Encounter for issue of repeat prescription (principal); G40.909 Epilepsy, unspecified, not intractable, without status epilepticus
CPT/HCPCS: 80299; 81025; 99282

== ENCOUNTER 2020-03-06 14:18 | Inpatient (IN) | payer MEDICAID ==
[~2020-03-06] VITALS: Ht 157.5 cm; Wt 54.5 kg
[~2020-03-06 14:18] MED LIST changes: +ACETAMINOPHEN325 M1 ORAL; +ATIVAN2 MG/ML IV; +BENADRYL25 MG ORAL; +COLACE100 MG ORAL; +D50w IV; +HEPARIN SO5000 UNIT2 SUBQ; +HYDROMORPH0.5 MG/0.5 IVP; +ZOFRAN 4 MG4 MG/2 ML IVP
[2020-03-06 15:00] VITALS: BP 128/88
--- NOTE | 2020-03-06 15:00 | NUR ---
ED Nurse Note: PT arrived with RA 94 from home d/t seizure witness by bf. pt is postictal upon arrival to ed; able to follow commands and answer questions, ao x 3-4.pt reports history of seizures pt reports taking dilantin and keppra. pt states she may have bit her tongue slightly. pt denies head trauma.
[2020-03-06] MEDS ORDERED: LORazepam Inj 2mg/ml 1ml ONE (15:40)
--- NOTE | 2020-03-06 15:40 | NUR ---
ED Nurse Note: pt actively had tonic/clonic seizure, pt did not hit head pt HOB lowered placed pt on right lateral. waited for seizure to cease lasted 10-15 seconds
[2020-03-06] MEDS ORDERED: Phenytoin 500 MG in NS 110 ML IV ONE (15:45)
[2020-03-06] MEDS ORDERED: LORazepam Inj 2mg/ml 1ml IM ONE (15:45)
[2020-03-06] MEDS ORDERED: levETIRAcetam 500mg/NS100ml 110 ML IV ONE (15:45)
[2020-03-06] MEDS ORDERED: Phenytoin 100mg cap ORAL ONE (15:45)
[2020-03-06 16:19] LABS: BASOPHILS % (AUTO) 1.6 % (0.0-2.0); EOSINOPHILS % (AUTO) 0.1 % (0.0-3.0); HEMATOCRIT 38.5 % (37.0-47.0); HEMOGLOBIN 12.7 G/DL (12.0-16.0); LYMPHOCYTES % (AUTO) 18.9 % (20.0-45.0); MEAN CORPUSCULAR VOLUME 96 FL (80-99); MONOCYTES % (AUTO) 5.8 % (1.0-10.0); NEUTROPHILS % (AUTO) 73.6 % (45.0-75.0); PLATELET COUNT 307 K/UL (150-450); WHITE BLOOD COUNT 12.2 K/UL (4.8-10.8)
[2020-03-06 16:32] LABS: ANION GAP 11 mmol/L (5-15); BLOOD UREA NITROGEN 8 mg/dL (7-18); CALCIUM 8.8 MG/DL (8.5-10.1); CARBON DIOXIDE 23 MMOL/L (21-32); CHLORIDE 102 MMOL/L (98-107); CREATININE 0.8 MG/DL (0.55-1.30); POTASSIUM 3.3 MMOL/L (3.5-5.1); SODIUM 136 MMOL/L (136-145)
[2020-03-06 16:36] LABS: ALANINE AMINOTRANSFERASE 7 U/L (12-78); ALBUMIN 3.7 G/DL (3.4-5.0); ALBUMIN/GLOBULIN RATIO 1.1 (1.0-2.7); ALKALINE PHOSPHATASE 78 U/L (46-116); ASPARTATE AMINO TRANSFERASE 24 U/L (15-37); BILIRUBIN,TOTAL 0.4 MG/DL (0.2-1.0)
--- NOTE | 2020-03-06 16:53 | Emergency Room Report ---
History of Present Illness General Chief Complaint: Seizure Source: Patient Present Illness HPI 39-year-old female presents to ED status post seizure. Brought in by EMS from home. Seizure witnessed today. Lasted several seconds. No incontinence. No tongue trauma. Patient apparently had a dislocated left shoulder which happens typically with her seizures. Patient is postictal but more awake and triage. History of seizures. States she takes Keppra and Dilantin. Missed her morning doses today. States that she popped her shoulder back in. Denies pain. No other aggravating relieving factors. 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: No Patient History Past Medical History: seizures Past Surgical History: none Pertinent Family History: none Social History: Denies: smoking, alcohol use, drug use Now: No Immunizations: UTD Reviewed Nursing Documentation: PMH: Agreed; PSxH: Agreed Nursing Documentation-PMH Past Medical History: No History, Except For Hx Cardiac Problems: No Hx Cancer: No Hx Gastrointestinal Problems: No Hx Neurological Problems: No - SUBSTANCE ABUSE Hx Seizures: Yes Review of Systems All Other Systems: negative except mentioned in HPI Physical Exam Vital Signs Date Time Temp Pulse Resp B/P (MAP) Pulse Ox O2 Delivery O2 Flow Rate FiO2 03/06/20 14:19 98.8 100 18 128/88 (101) 100 Room Air Sp02 EP Interpretation: reviewed, normal General Appearance: no apparent distress, non-toxic, Postictal Head: normocephalic, atraumatic Eyes: bilateral eye normal inspection, bilateral eye PERRL ENT: hearing grossly normal, normal pharynx, no angioedema, normal voice Neck: full range of motion, supple/symm/no masses Respiratory: chest non-tender, lungs clear, normal breath sounds, speaking full sentences Cardiovascular #1: regular rate, rhythm, no edema Cardiovascular #2: 2+ carotid (R), 2+ carotid (L), 2+ radial (R), 2+ radial (L), 2+ dorsalis pedis (R), 2+ dorsalis pedis (L) Gastrointestinal: normal bowel sounds, non tender, soft, non-distended, no guarding, no rebound Rectal: deferred Genitourinary: normal inspection, no CVA tenderness Musculoskeletal: back normal, normal range of motion, gait/station normal, non- tender Neurologic: other - postictal Psychiatric: other - postictal Reflexes: 3+ bicep (R), 3+ bicep (L), 3+ tricep (R), 3+ tricep (L), 3+ knee (R), 3+ knee (L) Skin: other - see nursing skin notes Lymphatic: no adenopathy Procedures Critical Care Time Critical Care Time i. I feel this is a highly complex case requiring extensive working including EKG/Rhythm strip, Xray/CT/US, Blood/urine lab work, repeat exams while in ED, and administration of strong opiates/narcotics for pain control, admission to hospital or close patient follow up. Total time: 30 min bedside evaluation and treatment excludes procedures (EKG). Reason for critical care: seizure Possible complications: hypotension, hypertension, DC, shock, arrhythmias, metabolic acidosis, end organ damage, respiratory failure. Interventions: Airway protection, IM Ativan, IV access, IV Keppra and IV Dilantin. Cardiac monitoring. Course: Status post seizure. Patient had another urine ED. Airway protected. Placed on cardiac surgeon. IV access obtained. Given Ativan, IV Keppra and IV Dilantin. Patient with stable vitals during ED course Consultations: nursing staff, EMS, family Performed by: Dr Thomas Tolerated well condition = serious j. because of unstable vital signs this patient had a condition that could potentially threaten life or limb. I feel this is a critical patient who required my full attention while patient was considered critical. Total Critical Care Time excluding procedures was greater than 35 minutes Medical Decision Making Diagnostic Impression: Primary Impression: Seizure disorder ER Course Hospital Course 39-year-old F presents to ED status post seizure. Differential diagnosis includes- breakthrough seizure, alcohol abuse, noncompliance with medication Clinical course Patient placed on stretcher. Initial history physical reveals a female in no acute distress. Awake alert oriented x3. States that her shoulder did dislocate previously but she was able to reduce on her own. Patient declining IV access. Admits to missing her Keppra and Dilantin earlier today. I offered to provide her oral medication but prior to receiving the medication she had another seizure in ED. Given IM Ativan. IV obtained. Labs drawn. Given IV Keppra and Dilantin. Labs-electrolytes okay, leukocytosis noted, hemoglobin/hematocrit stable. dilantin level low EKG - NSR no acute ischemic changes interpreted by me Given loading dose of Dilantin. Given that patient is still altered I believe she should be admitted. Case discussed with Dr. Cramer and he agreed to accept the patient to his service for further care and support. i. I feel this is a highly complex case requiring extensive working including EKG/Rhythm strip, Xray/CT/US, Blood/urine lab work, repeat exams while in ED, and administration of strong opiates/narcotics for pain control, admission to hospital or close patient follow up. Diagnosis - seizure admitted to telemetry in serious condition Laboratory Tests Test 03/06/20 15:15 White Blood Count 12.2 K/UL (4.8-10.8) H Red Blood Count 4.00 M/UL (4.20-5.40) L Hemoglobin 12.7 G/DL (12.0-16.0) Hematocrit 38.5 % (37.0-47.0) Mean Corpuscular Volume 96 FL (80-99) Mean Corpuscular Hemoglobin 31.7 PG (27.0-31.0) H Mean Corpuscular Hemoglobin Concent 33.0 G/DL (32.0-36.0) Red Cell Distribution Width 15.0 % (11.6-14.8) H Platelet Count 307 K/UL (150-450) Mean Platelet Volume 6.7 FL (6.5-10.1) Neutrophils (%) (Auto) 73.6 % (45.0-75.0) Lymphocytes (%) (Auto) 18.9 % (20.0-45.0) L Monocytes (%) (Auto) 5.8 % (1.0-10.0) Eosinophils (%) (Auto) 0.1 % (0.0-3.0) Basophils (%) (Auto) 1.6 % (0.0-2.0) Sodium Level 136 MMOL/L (136-145) Potassium Level 3.3 MMOL/L (3.5-5.1) L Chloride Level 102 MMOL/L (98-107) Carbon Dioxide Level 23 MMOL/L (21-32) Anion Gap 11 mmol/L (5-15) Blood Urea Nitrogen 8 mg/dL (7-18) Creatinine 0.8 MG/DL (0.55-1.30) Estimat Glomerular Filtration Rate > 60 mL/min (>60) Glucose Level 77 MG/DL (74-106) Calcium Level 8.8 MG/DL (8.5-10.1) Total Bilirubin 0.4 MG/DL (0.2-1.0) Aspartate Amino Transf (AST/SGOT) 24 U/L (15-37) Alanine Aminotransferase (ALT/SGPT) 7 U/L (12-78) L Alkaline Phosphatase 78 U/L (46-116) Total Protein 7.1 G/DL (6.4-8.2) Albumin 3.7 G/DL (3.4-5.0) Globulin 3.4 g/dL Albumin/Globulin Ratio 1.1 (1.0-2.7) Salicylates Level 4.4 ug/mL (2.8-20) Acetaminophen Level < 2 MCG/ML (10-30) L Phenytoin (Dilantin) Level < 0.5 ug/mL (10-20) L Serum Alcohol < 3 mg/dL EKG Diagnostic Results Rate: normal Rhythm: NSR ST Segments: no acute changes ASA given to the pt in ED: No Rhythm Strip Diag. Results EP Interpretation: yes Rhythm: NSR, no PVC's, no ectopy Last Vital Signs Date Time Temp Pulse Resp B/P (MAP) Pulse Ox O2 Delivery O2 Flow Rate FiO2 03/06/20 16:13 93 19 132/85 99 03/06/20 15:00 Room Air 03/06/20 15:00 98.8 Status: improved Disposition: ADMITTED INPATIENT Condition: Serious Referrals: NOT CHOSEN IPA/,REFERRING (PCP) Harris Thomas MD Mar 06, 2020 16:53
--- NOTE | 2020-03-06 17:15 | NUR ---
ED Nurse Note: Pt has not had any seizure activity, pt is resting in bed. no acute distress noted.
[2020-03-06] MEDS ORDERED: Sodium Chloride for KCL Premix x 2hrs IV SCH (18:30)
--- NOTE | 2020-03-06 18:47 | NUR ---
ED Nurse Note: [facility] unit 200 at bedside to pick pt up and send back to snf. CRN informed SNF of pt return to facility.
--- NOTE | 2020-03-06 18:58 | NUR ---
HAND-OFF: Report given to Arik Willoughby rn.
[2020-03-06 19:30] VITALS: BP 100/69
--- NOTE | 2020-03-06 19:55 | NUR ---
TRANSFER TO FLOOR: Patient transferred to [facility] 205-2 as ordered, per yamila barton. Report given to peng britton. patient stable for transport. transferred to unit via gurney with mariama and rn. belongings and admission packet sent with patient.
--- NOTE | 2020-03-06 20:20 | NUR ---
NURSE NOTES: Received report from Arik Hylton RN. Pt is awake, alert and oriented x 4. Pt was able to transfer from [facility] to [facility] bed with steady gait, no assistance needed. BP 103/63, T 98.1, P 85, R 20, SpO2 100% on RA. monitor worker placed and is functional. Call light within reach, pt oriented to call light, rounding policy, vistation policy, TV and overheard light. Verbalized understanding. Call made to [facility] for admission orders, awaiting call back. Will start close monitoring and plan of care.
[2020-03-06 21:00] VITALS: BP 102/63
--- NOTE | 2020-03-06 21:15 | NUR ---
NURSE NOTES: Received admission orders from Ashley. Continue home meds, consults, code status, ativan for seizures ordered. Orders read back and entered into eMAR. Will start plan of care and close monitoring.
[2020-03-06] MEDS ORDERED: Hydromorphone 0.5mg/0.5ml inj IVP PRN (21:30)
[2020-03-06] MEDS ORDERED: Acetaminophen 500mg (ES) tab ORAL PRN (21:30)
[2020-03-06] MEDS ORDERED: LORazepam Inj 2mg/ml 1ml IV PRN (21:30)
[2020-03-06] MEDS ORDERED: 1/2NS w/KCl 20mEq 1000ml 1,000 ML IV SCH (23:00)
[2020-03-07] VITALS: BP 105/72
[2020-03-07 04:00] VITALS: BP 114/76
--- NOTE | 2020-03-07 06:01 | NUR ---
NURSE HAND-OFF REPORT: Important Events on Shift: Pt admitted at floor approx. @ 2100. Pt has had no seizure activity throughout shift. VS WNL. Patient Status: stable Diet: NPO Pending Orders: none Pending Results/Labs: CMP, CBC Pending MD notification: none Latest Vital Signs: Temperature 98.0 , Pulse 68 , B/P 114 /76 , Respiratory Rate 18 , O2 SAT 99 , Room Air, O2 Flow Rate . Vital Sign Comment: EKG Rhythm: Sinus Rhythm Rhythm change?: N MD Notified?: - MD Response: Latest Funk Fall Score: 75 Fall Risk: High Risk Safety Measures: Call light Within Reach, Bed Alarm Zone 1, Side Rails Side Rails x2, Bed position Low and Locked. Fall Precautions: Yellow Socks yes Yellow Gown yes Door Sign yes Patient Fall Education yes Seizure precautions yes Addendum: 03/07/20 at 0712 by Marine Stovall RN HAND-OFF: Report given to Reba Cho RN
[2020-03-07 07:17] LABS: BASOPHILS % (AUTO) 3.4 % (0.0-2.0); EOSINOPHILS % (AUTO) 1.3 % (0.0-3.0); HEMATOCRIT 35.4 % (37.0-47.0); HEMOGLOBIN 12.2 G/DL (12.0-16.0); MEAN CORPUSCULAR VOLUME 89 FL (80-99); NEUTROPHILS % (AUTO) 51.4 % (45.0-75.0); PLATELET COUNT 300 K/UL (150-450); RED BLOOD COUNT 3.97 M/UL (4.20-5.40); RED CELL DISTRIBUTION WIDTH 13.9 % (11.6-14.8); WHITE BLOOD COUNT 10.6 K/UL (4.8-10.8)
[2020-03-07 07:49] LABS: ALANINE AMINOTRANSFERASE 13 U/L (12-78); ALBUMIN 3.2 G/DL (3.4-5.0); ALBUMIN/GLOBULIN RATIO 0.8 (1.0-2.7); ALKALINE PHOSPHATASE 72 U/L (46-116); ANION GAP 14 mmol/L (5-15); ASPARTATE AMINO TRANSFERASE 23 U/L (15-37); BILIRUBIN,TOTAL 0.7 MG/DL (0.2-1.0); BLOOD UREA NITROGEN 6 mg/dL (7-18); CALCIUM 8.3 MG/DL (8.5-10.1); CARBON DIOXIDE 20 MMOL/L (21-32); CHLORIDE 103 MMOL/L (98-107); CREATININE 0.6 MG/DL (0.55-1.30); POTASSIUM 2.9 MMOL/L (3.5-5.1); SODIUM 137 MMOL/L (136-145)
--- NOTE | 2020-03-07 07:54 | NUR ---
NURSE NOTES: pt. in bed resting AOx 3-4. Side rails padded. pt is NPO. pt is on electronic device monitor, no signs of cardiac or respiratory distress. Bed in lowest position, call light within reach. Will continue to monitor pt.
[2020-03-07 08:00] VITALS: BP 108/74
[2020-03-07] MEDS ORDERED: Phenytoin 100mg cap ORAL SCH (09:00)
[2020-03-07] MEDS ORDERED: Heparin 5000 units/ml inj SUBQ SCH (09:00)
[2020-03-07] MEDS ORDERED: Docusate 100mg cap ORAL SCH ×2 (09:00→13:00)
--- NOTE | 2020-03-07 11:50 | Consultation ---
Consult Note Consult Note I am asked to evaluate the patient at the request of Dr. Leroy for fluid and electrolyte management Patient seen, interviewed, examined 39-year-old female presents to ED status post seizure. Brought in by EMS from home. Seizure witnessed today. Lasted several seconds. No incontinence. No tongue trauma. Patient apparently had a dislocated left shoulder which happens typically with her seizures. Patient is postictal but more awake and triage. History of seizures. States she takes Keppra and Dilantin. Missed her morning doses today. States that she popped her shoulder back in. Denies pain. No other aggravating relieving factors. Denies any other associated symptoms. 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 HEENT: PERRLA. NECK: Supple. No lymphadenopathy. CHEST: Clear to auscultation. CARDIOVASCULAR: Regular rate and rhythm. No murmurs or extra sounds. GASTROINTESTINAL: Soft, nontender, nondistended. No organomegaly. EXTREMITIES: No edema. Moves all four extremities. . Assessment/Plan Hypokalemia Seizure disorder, noncompliant with seizure medication Urine positive for cannabis Suggestions: Potassium supplement Urine for analysis and urine for tox screen Keep the blood pressure in check Continue per consultants Continue antiseizure medication Amado Rangel MD Mar 07, 2020 11:50
[2020-03-07 12:00] VITALS: BP 107/82
--- NOTE | 2020-03-07 15:04 | NUR ---
CASE MANAGEMENT:REVIEW 39 YR OLD FEMALE BIBA FROM HOME CC: SEIZURE @ HOME AND IN ER. LT SHOULDER DISLOCATION PMH: SEIZURE DISORDER SI: SEIZURE 98.8 111 18 100/69 100% ON RA WBC+12.2 K-3.3 IS: DILANTIN PO X1 KEPPRA PO X1 ATIVAN IM X1 IV KEPPRA X1 IV DILANTIN X1 500CC NS BOLUS : TELEMETRY STATUS PLAN: SEIZURE PRECAUTIONS NEURO CHECKS PER PROTOCOL 03/07/20 DISCHARGE HOME
[2020-03-07 16:00] VITALS: BP 108/79
--- NOTE | 2020-03-07 16:12 | NUR ---
NURSE NOTES: per doctor Juan Carlos, he can not DC pt when her potassium is low, she is still at risk of seizures. Pt can leave AMA.
--- NOTE | 2020-03-07 16:22 | Cardiology Report ---
APPROVED REPORT EKG Measurement Heart [id number] <Conclusion> Normal sinus rhythm Normal ECG
[2020-03-07 17:12] LABS: APPEARANCE,URINE CLEAR; BILIRUBIN, URINE NEGATIVE (NEGATIVE); COLOR,URINE PALE YELLOW; GLUCOSE, URINE (UA) NEGATIVE (NEGATIVE); KETONES,URINE NEGATIVE (NEGATIVE); LEUKOCYTE ESTERASE ,URINE 1+ (NEGATIVE); NITRITE,URINE NEGATIVE (NEGATIVE); PH,URINE 6.5 (4.5-8.0); PROTEIN,URINE NEGATIVE (NEGATIVE); UROBILINOGEN,URINE NORMAL MG/DL (0.0-1.0)
--- NOTE | 2020-03-07 17:45 | NUR ---
NURSE NOTES: pt, left AMA, doctor Bela is aware, as well as doctor Juan Carlos. Pt felt good to go home, "I received 5 bags of potassium so I stay for that, I should be better now" I don't want to spend another day here. Doctor Juan Carlos refused to DC pt because her lab values were not corrected and making more prone to seizures. Pt left in stable condition. Pt was educated that if she starts feeling bad again she can return to the hospital. She knows to contact neurologist and PCP once she leaves the hospital. Pt left in a hurry and forgot her cell ph band edger. Everything else she took with her. IV was DC, site is not bleeding. air sampling and monitoring was taken off , pt did not complain of any cardiac or respiratory distress at this time.
--- NOTE | 2020-03-07 23:00 | History and Physical Report ---
DATE OF ADMISSION: 03/06/2020 HISTORY OF PRESENT ILLNESS: The patient is here because of seizure x1 day. The patient wanted to leave against medical seizures and is noncompliant with the Dilantin and Keppra. The patient also is admitted for low potassium as well. The patient has a history of seizures as mentioned. The patient also complained of left shoulder pain. She claimed that it was dislocated and came back on its own. The patient denies headache. Denies change in vision or speech pattern. Denies nausea, vomiting, or diarrhea. Denies shortness of breath. Denies cough. Denies fever or chills. PAST MEDICAL HISTORY: Seizure. PAST SURGICAL HISTORY: None. MEDICATIONS: Dilantin and Keppra. She is noncompliant. FAMILY HISTORY: Denies any family history. SOCIAL HISTORY: Has a history of smoking, history of marijuana use, history of alcohol abuse. REVIEW OF SYSTEMS: HEENT: Headaches, but denies shortness of breath. Denies cough. CARDIOVASCULAR: Denies chest pain. GASTROINTESTINAL: Denies nausea, vomiting, or diarrhea. EXTREMITIES: Denies pain. CENTRAL NERVOUS SYSTEM: Had seizure x1 day. PHYSICAL EXAMINATION: VITAL SIGNS: Temperature 97.2, pulse 78, blood pressure 132/70. HEENT: PERRLA. NECK: Supple. No lymphadenopathy. CHEST: Clear to auscultation. CARDIOVASCULAR: Regular rate and rhythm. No murmurs or extra sounds. GASTROINTESTINAL: Soft, nontender, nondistended. No organomegaly. EXTREMITIES: No edema. Moves all four extremities. NEUROLOGIC: Sensory intact to light touch. Reflexes equal on both sides. LABORATORY DATA: Essentially normal. ASSESSMENT AND PLAN: Seizure disorder, breakthrough seizure, noncompliant on seizure medication. Consulted Dr. Rangel and Dr. Shepherd for the low potassium and seizure control. I was not able to find any neurologist arranged to see the patient. Arcadio Cramer M.D. DR: ZAYDA JOB#: [id number] CC:
--- NOTE | 2020-03-08 00:11 | Psych Consult Progress Note ---
Psychiatry Progress Note Psychiatry Progress Note Allergies: Coded Allergies: No Known Allergies (Unverified , 08/05/13) Objective Data Height (Feet): 5 Height (Inches): 2.00 Weight (Pounds): 120 William Shepherd MD Mar 08, 2020 00:11
--- NOTE | 2020-03-08 00:45 | Consultation ---
DATE OF CONSULTATION: 03/07/2020 CONSULTING PHYSICIAN: William Shepherd MD HISTORY OF PRESENT ILLNESS: This is a 39-year-old female with a history of seizure disorder as well as history of noncompliant with medications who has been admitted to the hospital due to seizure. Patient was given medication. She has also had anxiety. I changed her medication Keppra. Patient did not have any seizures. She was able to understand, process, communicate rationally. Later during the day, patient decided to leave AMA. She was not having suicidal or homicidal ideation. Patient is adamant against staying in the hospital and getting cleared by other disciplines. She actually wanted to leave and see her outpatient doctor. PAST MEDICAL HISTORY: Seizure, low potassium. ALLERGIES: No known drug allergies. SUBSTANCE ABUSE HISTORY: No known history of illicit drug use or alcohol. MENTAL STATUS EXAMINATION: Patient is alert, oriented times self, place, situation. Mood is neutral. Affect is constricted, congruent with mood. Thought process is concrete. Thought content, there is no suicidal or homicidal ideation. Cognition is intact. Insight and judgment is limited. ASSESSMENT: [place] I Anxiety disorder. [place] II Deferred. [place] III As above. [place] IV Low. [place] V 60. PLAN: 1. Patient has capacity to make decision. 2. Continue to follow and readjust the medications. William Shepherd M.D. DR: LEXI JOB#: [id number] CC:
--- NOTE | 2020-03-09 06:50 | Discharge Summary ---
Discharge Summary Discharge Summary _ DATE OF ADMISSION: 03/06/2020 DATE OF DISCHARGE: 03/07/2020 Patient left AGAINST MEDICAL ADVICE REASON FOR ADMISSION: 39 years old female with past medical history of seizure disorder, presented to emergency department after seizure episode . patient had a witnessed episode of seizure at home , lasted several seconds. No incontinence. No tongue trauma. Patient had a dislocated left shoulder, which usually happens when she has seizure. Upon evaluation laboratory work-up revealed mild leukocytosis with WBC 12.2 , potassium 3.3 , otherwise stable electrolytes and renal parameters. Stable LFT. In ED patient received Ativan, Keppra and Dilantin and admitted for further management CONSULTANTS: psychiatrist [facility]SE: Patient admitted to the hospital. Seizure precaution maintained. Patient continued on Keppra and Dilantin. No further seizure activities. Ativan was on board as needed for breakthrough seizures. Potassium replaced, but the next day potassium still 2.9. DVT and GI prophylaxis provided. Psychiatrist seen the patient and diagnosed with anxiety disorder. Per psychiatrist, patient had capacity to make her own decision. Patient wanted to go home , however neurodiagnostic tech stated she was not not stable to go with low potassium. Patient then received potassium supplement that day, but declined to o follow-up with labs. Patient decided to leave AGAINST MEDICAL ADVICE. The risks and consequences of signing AGAINST MEDICAL ADVICE were discussed with patient in detail. Patient verbalized understanding, nevertheless signed AMA form and left.. FINAL DIAGNOSES: Seizure disorder with noncompliance with seizure medication Breakthrough seizure episode Hypokalemia Cannabis use Anxiety disorder I have been assigned to dictate discharge summary for this account. I was not involved in the patient's management. Marry Palomares NP Mar 09, 2020 06:50
--- NOTE | 2020-03-09 16:46 | NUR ---
INSURANCE DC SUMMARY FAXED TO [facility] [phone]
== END 2020-03-07 18:01 | disposition left against medical advice (07) | DRG 53 ==
LOC: EDBD 14:18 → EMR 15:00 → 2E 17:34 → EDBEDREQ 18:42
DX: G40.909 Epilepsy, unspecified, not intractable, without status epilepticus (principal); Z91.14 Patient's other noncompliance with medication regimen; E87.6 Hypokalemia; F41.9 Anxiety disorder, unspecified; F12.90 Cannabis use, unspecified, uncomplicated; Z87.891 Personal history of nicotine dependence
CPT/HCPCS: 36415; 80053; 80185; 80307; 81001; 83735; 83880; 84100; 84550; 85025; 86140; 93005; 96365; 96367; 96372; 99291; G0480; J1165

== ENCOUNTER 2020-03-14 19:41 | Emergency (ER) | payer MEDICAID ==
[~2020-03-14] VITALS: Ht 167.6 cm; Wt 77.1 kg
[2020-03-14] MEDS ORDERED: levETIRAcetam 1,000mg/NS100ml 100 ML IVPB ONE (19:45)
--- NOTE | 2020-03-14 19:45 | NUR ---
ED Nurse Note: Patient brought in by ambulance [facility] due to seizure. Seizure was witnessed by boyfriend, duration and characteristic unk. Per EMS patient patient is not med compliant. Patient denies substance/drug use. Patient is alert and was able to answer questions as of the moment. Patient denies any injury/trauma, denies SOB/CP/, fever and chills. PAtient is nauseated and was retching. Seizure precaution initiated. Placed on monitor bed.
--- NOTE | 2020-03-14 19:46 | NUR ---
ED Nurse Note: ERMD at bedside
--- NOTE | 2020-03-14 19:50 | NUR ---
ED Nurse Note: Blood sent to lab
--- NOTE | 2020-03-14 19:54 | Emergency Room Report ---
History of Present Illness General Chief Complaint: Seizure Source: Patient (Clemente Bruce MD) Present Illness HPI 39-year-old female history of seizures, history of noncompliance, presents with seizure prior to arrival, tonic-clonic witnessed by boyfriend, patient was on the bed, she intermittently takes Dilantin, Keppra, her medications alleviate her seizures her noncompliance aggravates her seizure severity is severe lasting a few minutes, patient presents for evaluation and treatment (Clemente Bruce MD) Allergies: Coded Allergies: No Known Allergies (Unverified , 08/05/13) COVID-19 Screening Contact w/high risk pt: No Experienced COVID-19 symptoms?: No COVID-19 Testing performed MATERIAL CHECKER: No (Clemente Bruce MD) Patient History Past Medical History: see triage record Social History: Reports: smoking, drug use Reviewed Nursing Documentation: PMH: Agreed; PSxH: Agreed (Clemente Bruce MD) Nursing Documentation-PMH Hx Cardiac Problems: No Hx Cancer: No Hx Gastrointestinal Problems: No Hx Neurological Problems: Yes Hx Seizures: Yes (Clemente Bruce MD) Review of Systems All Other Systems: negative except mentioned in HPI (Clemente Bruce MD) Physical Exam Vital Signs Date Time Temp Pulse Resp B/P (MAP) Pulse Ox O2 Delivery O2 Flow Rate FiO2 03/14/20 19:42 98.4 89 18 136/81 (99) 99 Room Air Sp02 EP Interpretation: reviewed, normal General Appearance: well appearing, no apparent distress, alert Head: normocephalic, atraumatic Eyes: bilateral eye PERRL, bilateral eye EOMI ENT: uvula midline, moist mucus membranes Neck: supple, thyroid normal, supple/symm/no masses Respiratory: lungs clear, no respiratory distress, no retraction, no accessory muscle use Cardiovascular #1: normal peripheral pulses, regular rate, rhythm, no edema, no gallop, no murmur Gastrointestinal: non tender, soft, no guarding, no rebound Musculoskeletal: normal inspection Neurologic: alert, responsive - Mildly confused Psychiatric: mood/affect normal Skin: no rash, warm/dry (Clemente Bruce MD) Procedures Critical Care Time Critical Care Time Given the critical condition in which the patient arrived, the patient was immediately assessed by myself and the nurse, and cardiac monitoring initiated due to the potential for rapid decompensation of the patient's clinical condition. During the course of the patient's stay, I spent a considerable amount of time at the bedside performing serial re-evaluations of the patient's hemodynamic and clinical status because of the recognized potential threat to life or limb in this condition. I then had a chance to review not only all of the available current laboratory and radiographic studies obtained today, but I also reviewed old records available to me at the time. Additionally, any ancillary information available including pathological technician records were reviewed. Sequential vital signs were obtained. Critical Care time of 33 minutes was performed exclusive of billable procedures. Patient had a seizure while in the ED requiring IV Ativan to terminate seizure, additionally patient was loaded with 1 g of Keppra for seizure prophylaxis (Clemente Bruce MD) Medical Decision Making Diagnostic Impression: Primary Impression: Epileptic seizure, generalized Additional Impressions: Noncompliance UTI (urinary tract infection) ER Course 39-year-old female presents with seizure prior to arrival differential includes UTI, medication noncompliance Patient reports intermittently taking her medications no dysuria, additionally patient then had another seizure while in the ED requiring 1 mg of Ativan with subsequent improvement patient loaded with 1 g of Keppra Reevaluation 9:42 PM patient is back to baseline, counseled patient is very important to take her seizure medications daily (Clemente Bruce MD) ER Course This patient signed out to me. She has a history of seizure and noncompliant with her medication. She presents with a tonic-clonic seizure activity at home. She is back to baseline now. She was initially loaded with Keppra. I gave her Dilantin here also. Urinalysis showed UTI. She is eating back to baseline. Will discharge home. (Deion Mcnair MD) EKG Diagnostic Results Troponin ordered: No EKG Time: 20:12 EP Interpretation: Sinus tachycardia, rate 106, QTc 504, no acute ST or lesions, normal axis (Clemente Bruce MD) Rhythm Strip Diag. Results Rhythm Strip Time: 21:40 EP Interpretation: yes Rate: 111 Rhythm: other - Sinus tachycardia (Clemente Bruce MD) Last Vital Signs Date Time Temp Pulse Resp B/P (MAP) Pulse Ox O2 Delivery O2 Flow Rate FiO2 03/14/20 19:42 98.4 89 18 136/81 (99) 99 Room Air (Clemente Bruce MD) Status: improved (Deion Mcnair MD) Disposition: HOME, SELF-CARE Condition: Improved Scripts Nitrofurantoin Monohyd/M-Cryst (Nitrofurantoin [place]-Mcr 100 mg) 100 Mg Capsule 100 MG ORAL Q12H, #14 CAP Prov: Deion Mcnair MD 03/14/20 Phenytoin Sodium Extended* (DILANTIN*) 100 Mg Capsule 300 MG ORAL BEDTIME, #90 CAP Prov: Deion Mcnair MD 03/14/20 Levetiracetam (KEPPRA) 500 Mg Tablet 500 MG ORAL EVERY 12 HOURS, #60 TAB 0 Refills Prov: Deion Mcnair MD 03/14/20 Referrals: [facility]. [facility] Patient Instructions: Seizure, Adult Additional Instructions: The patient was provided with discharge instructions, notified to follow-up with a primary care doctor and or specialist in the next 24-48 hours, and to return to the ED if they have worsening of their symptoms. Please note that this report is being documented using [employer] technology. This can lead to erroneous entry secondary to incorrect interpretation by the dictating instrument. Clemente Bruce MD Mar 14, 2020 19:54 Deion Mcnair MD Mar 14, 2020 22:59
[2020-03-14] MEDS ORDERED: LORazepam Inj 2mg/ml 1ml ONE (19:56)
[2020-03-14 20:00] VITALS: BP 136/81
[2020-03-14] MEDS ORDERED: LORazepam Inj 2mg/ml 1ml IV ONE (20:00)
--- NOTE | 2020-03-14 20:00 | NUR ---
ED Nurse Note: (+) SEIZURE Duration: 1 min Bella: generalized seizure Suctioned secretions ERMD at bedside Ativan 1mg/IV and Keppra IV given
[2020-03-14 20:14] LABS: HEMATOCRIT 45.1 % (37.0-47.0); HEMOGLOBIN 14.8 G/DL (12.0-16.0); MEAN CORPUSCULAR VOLUME 96 FL (80-99); PLATELET COUNT 335 K/UL (150-450); RED BLOOD COUNT 4.71 M/UL (4.20-5.40); RED CELL DISTRIBUTION WIDTH 15.3 % (11.6-14.8); WHITE BLOOD COUNT 19.6 K/UL (4.8-10.8)
[2020-03-14 20:24] LABS: BASOPHILS % (AUTO) 1.5 % (0.0-2.0); LYMPHOCYTES % (AUTO) 6.6 % (20.0-45.0); MONOCYTES % (AUTO) 3.4 % (1.0-10.0); NEUTROPHILS % (AUTO) 88.6 % (45.0-75.0)
--- NOTE | 2020-03-14 20:30 | NUR ---
ED Nurse Note: Patient awake on bed. VSS as documented
[2020-03-14 20:45] LABS: ANION GAP 20 mmol/L (5-15); BLOOD UREA NITROGEN 6 mg/dL (7-18); CALCIUM 9.1 MG/DL (8.5-10.1); CARBON DIOXIDE 19 MMOL/L (21-32); CHLORIDE 100 MMOL/L (98-107); CREATININE 1.2 MG/DL (0.55-1.30); POTASSIUM 3.5 MMOL/L (3.5-5.1); SODIUM 139 MMOL/L (136-145)
[2020-03-14 20:49] LABS: ALANINE AMINOTRANSFERASE 15 U/L (12-78); ALBUMIN 4.2 G/DL (3.4-5.0); ALKALINE PHOSPHATASE 98 U/L (46-116); ASPARTATE AMINO TRANSFERASE 28 U/L (15-37); BILIRUBIN,TOTAL 0.4 MG/DL (0.2-1.0)
--- NOTE | 2020-03-14 20:53 | NUR ---
ED Nurse Note: Rapid covid test sent
--- NOTE | 2020-03-14 21:18 | NUR ---
emergency contact: Alex ()- [phone]
--- NOTE | 2020-03-14 21:30 | NUR ---
ED Nurse Note: Drinks provided to the patient
--- NOTE | 2020-03-14 22:00 | NUR ---
ED Nurse Note: Urine sent to lab
[2020-03-14] MEDS ORDERED: Phenytoin 1,000 MG in NS 275 ML IVPB ONE (22:15)
[2020-03-14 22:21] LABS: BILIRUBIN, URINE NEGATIVE (NEGATIVE); COLOR,URINE PALE YELLOW; GLUCOSE, URINE (UA) NEGATIVE (NEGATIVE); KETONES,URINE 1+ (NEGATIVE); LEUKOCYTE ESTERASE ,URINE 1+ (NEGATIVE); NITRITE,URINE NEGATIVE (NEGATIVE); PH,URINE 5 (4.5-8.0); PROTEIN,URINE 3+ (NEGATIVE); UROBILINOGEN,URINE NORMAL MG/DL (0.0-1.0)
[2020-03-14 22:22] LABS: APPEARANCE,URINE SLIGHTLY CLOUDY
[2020-03-14] MEDS ORDERED: DILANTIN100 MG ORAL (22:59)
[2020-03-14] MEDS ORDERED: KEPPRA500 M4 ORAL (22:59)
[2020-03-14] MEDS ORDERED: cefTRIAXone 1 GM in NS 55 ML IVPB ONE (23:00)
[2020-03-14] MEDS ORDERED: MACROBID100 MG ORAL (23:02)
[2020-03-15 00:10] VITALS: BP 109/65
--- NOTE | 2020-03-15 00:10 | NUR ---
ER DISCHARGE NOTE: Patient is cleared to be discharged per ERMD, pt is aox4, on room air, with stable vital signs. pt was given dc and prescription instructions, pt was able to verbalize understanding, pt id band and iv site removed without complications. pt is able to ambulate with steady gait. pt took all belongings. pt was dc to a cab going to home address which staff arranged for pt
== END 2020-03-15 00:10 | disposition home or self-care (01) ==
LOC: EDBD 19:41 → EDUNIT# 19:41 → EMR 20:36
DX: G40.909 Epilepsy, unspecified, not intractable, without status epilepticus (principal); N39.0 Urinary tract infection, site not specified; Z91.14 Patient's other noncompliance with medication regimen; R00.0 Tachycardia, unspecified
CPT/HCPCS: 36415; 80053; 80185; 80307; 81003; 81025; 84702; 85025; 87086; 96365; 96368; 96375; J0696; J1165; J1953; J7030; J7050; U0002; Z7502; 99291